=== PATIENT | female | born 1950 | race African-American/Black ===

== ENCOUNTER 2018-10-05 16:47 | Inpatient (IN) | payer MEDICARE, OTHER ==
[~2018-10-05] VITALS: Ht 165.1 cm; Wt 127.0 kg
[2018-10-05 16:59] VITALS: BP 149/76
--- NOTE | 2018-10-05 17:08 | PCM.EKG ---
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
--- NOTE | 2018-10-05 17:12 | NUR ---
ARRIVAL PT ARRIVED BY EMS WITH AMS. PT IS VERY LETHARGIC BUT DOES FOLLOW COMMANDS APPROPIATLY. LABS BEING DRAWN AT THIS TIME. VITAL SIGNS STABLE PT IS FEBRILE
[2018-10-05 17:18] LABS: BASOPHIL % 0.1 % (0.0-0.2); HEMOGLOBIN 12.7 g/dL (12.0-15.0); LYMPHOCYTES # 0.9 10^3/uL (1.0-4.8); LYMPHOCYTES % 10.8 % (24.0-44.0); MEAN CELL HGB 30.6 pg (26-34); MEAN CELL HGB CONCENTRATION 35.3 g/dL (33-37); MEAN CORP VOLUME 86.7 fL (78-100); MEAN PLATELET VOLUME 10.3 fL (7.8-11.0); MONOCYTES # 0.6 10^3/uL (0.3-0.8); MONOCYTES % 6.8 % (5.0-12.0); NEUTROPHIL # 6.8 10^3/uL (1.8-7.7); NEUTROPHILS % 82.2 % (41.0-85.0); RED CELL DISTRIBUTION WIDTH 12.5 % (11.5-14.5); WHITE BLOOD CELL 8.2 10^3/uL (4.5-11.0)
[2018-10-05 17:23] LABS: ABG PH 7.514 (7.350-7.450); BE(B) 0.3 mmol/L (-2.0-2.0); pO2 57.1 mmHg (75.0-100.0)
--- NOTE | 2018-10-05 17:25 | NUR ---
CT PATIENT OVER TO CT
[2018-10-05 17:34] LABS: STREP SCREEN POSITIVE (NEGATIVE)
--- NOTE | 2018-10-05 17:37 | NUR ---
LAB LAB IN ROOM FOR 2ND BLOOD CULTURE DRAW.
--- NOTE | 2018-10-05 17:42 | DIREP ---
PROCEDURE:CHEST 1 VIEW COMPARISON:None. INDICATIONS:COUGH FEVER FINDINGS: LUNGS/PLEURA:Shallow inspiratory effort. No infiltrates. VASCULATURE:Normal. Unremarkable pulmonary vasculature. CARDIAC:Heart size cannot be evaluated due to AP technique and shallow inspiration. MEDIASTINUM:Normal. No visible mass or adenopathy. BONES:Normal. No fracture or visible bony lesion. OTHER:Negative. CONCLUSION:Shallow inspiration. No infiltrates. Dictated by: Manpreet Canada M.D. on 10/05/2018 at 05:39 PM
--- NOTE | 2018-10-05 17:44 | DIREP ---
PROCEDURE:CT HEAD WITHOUT CONTRAST TECHNIQUE:Axial cuts were obtained through the head, without intravenous contrast material. The images were viewed at brain and bone settings. COMPARISON:None. INDICATIONS:AMS FINDINGS: VENTRICLES:Normal. CEREBRUM:Normal. CEREBELLUM:Normal. BRAINSTEM:Normal. SKULL:Normal. SINUSES:Mucoperiosteal thickening right ethmoid sinus. OTHER:Negative. CONCLUSION: 1. No intracranial abnormalities. 2. Right ethmoid sinusitis. Dictated by: Manpreet Canada M.D. on 10/05/2018 at 05:40 PM
[2018-10-05 17:45] LABS: ALANINE AMINOTRANSFERASE(ML) 40 U/L (12-78); ALKALINE PHOSPHATASE 88 U/L (50-136); ASPARTATE AMINO TRANSFERASE 43 U/L (0-35); CALCIUM 8.2 mg/dL (8.4-10.5); CARBON DIOXIDE 23.3 mmol/L (20.0-32); GLUCOSE 161 mg/dL (70-110)
[2018-10-05] MEDS ORDERED: ZOFRAN ONE (17:51)
--- NOTE | 2018-10-05 18:09 | ER.PDOC ---
General Chief Complaint: Altered Mental Status Stated Complaint: REQ Time seen by MD: 18:06 Source: patient Exam Limitations: no limitations History of Present Illness Initial Comments Fever, cough and runny nose for past few days. confused today. Timing/Duration: gradual Severity: moderate Associated Symptoms: fever/chills, runny nose, sore throat, cough Constitutional: see HPI EENTM: see HPI Respiratory: see HPI Cardiovascular: no symptoms reported Gastrointestinal: no symptoms reported All Other Systems: Reviewed and Negative Past Medical History Medical History: thyroid disease Physical Exam General Appearance: alert, no distress Nose: nose nml Throat: airway nml, pharyngeal erythema Neck: nml inspection, supple Respiratory: no resp.distress, breath sounds nml Abdomen: non-tender, no organomegaly CVS: reg rate & rhythm, heart sounds nml Skin: color nml, no rash, warm/dry Extremities: non-tender, nml ROM, no pedal edema NEURO/PSYCH: oriented x 3, CN's nml as tested, motor nml, sensation nml, mood/ affect nml, disoriented to time Results/Orders Results/Orders Laboratory Tests Test 10/05/18 17:11 10/05/18 17:12 10/05/18 18:30 White Blood Count 8.2 10^3/uL (4.5-11.0) Red Blood Count 4.15 10^6/uL (4.00-5.20) Hemoglobin 12.7 g/dL (12.0-15.0) Hematocrit 36.0 % (36.0-46.0) Mean Corpuscular Volume 86.7 fL (78-100) Mean Corpuscular Hemoglobin 30.6 pg (26-34) Mean Corpuscular Hemoglobin Concent 35.3 g/dL (33-37) Red Cell Distribution Width 12.5 % (11.5-14.5) Platelet Count 146 10^3/uL (150-400) Mean Platelet Volume 10.3 fL (7.8-11.0) Neutrophils (%) (Auto) 82.2 % (41.0-85.0) Lymphocytes (%) (Auto) 10.8 % (24.0-44.0) Monocytes (%) (Auto) 6.8 % (5.0-12.0) Neutrophils # (Auto) 6.8 10^3/uL (1.8-7.7) Lymphocytes # (Auto) 0.9 10^3/uL (1.0-4.8) Monocytes # (Auto) 0.6 10^3/uL (0.3-0.8) Absolute Immature Granulocyte (auto 0.01 10^3 u/L (0-2) Eosinophils % 0.0 % (0.0-5.0) Basophils % 0.1 % (0.0-0.2) Basophils # 0.0 10^3/uL (0.0-0.1) Eosinophil Count 0.0 10^3/uL (0.0-0.2) Prothrombin Time 12.3 SEC (9.8-11.9) Prothrombin Time INR (Non-Therap) 1.2 Activated Partial Thromboplast Time 33.9 SEC (24.67-30.72) Sodium Level 133 mmol/L (132-145) Potassium Level 3.0 mmol/L (3.6-5.2) Chloride Level 97.0 mmol/L (96-109) Carbon Dioxide Level 23.3 mmol/L (20.0-32) Anion Gap 15.7 Blood Urea Nitrogen 11 mg/dL (7-18) Creatinine 0.91 mg/dL (0.59-1.40) Estimated GFR () 74.8 (>/=60) BUN/Creatinine Ratio 12.0 Glucose Level 161 mg/dL (70-110) Calcium Level 8.2 mg/dL (8.4-10.5) Total Bilirubin 1.5 mg/dL (0.2-1.0) Aspartate Amino Transf (AST/SGOT) 43 U/L (0-35) Alanine Aminotransferase (ALT/SGPT) 40 U/L (12-78) Alkaline Phosphatase 88 U/L (50-136) Total Creatine Kinase 180 U/L (26-192) Troponin I < 0.02 ng/mL (0.00-0.05) Pro-B-Type Natriuretic Peptide 750 pg/mL (0-125) Total Protein 7.9 g/dL (6.4-8.2) Albumin 3.0 g/dL (3.4-5.0) Globulin 4.9 Percent Immature Gran (Cell Imm) 0.10 % (0.00-0.50) Influenza Type A Antigen NEGATIVE (NEG) Influenza B Immunofluorescence NEGATIVE (NEG) Group A Streptococcus Screen POSITIVE (NEGATIVE) Blood Gas Sample Site LEFT BRACHIAL ARTRY Blood Gas pH 7.514 (7.350-7.450) Blood Gas PCO2 28.0 mmHg (35.0-45.0) Blood Gas PO2 57.1 mmHg (75.0-100.0) Blood Gas HCO3 22.0 mmol/L (22.0-26.0) Blood Gas Base Excess 0.3 mmol/L (-2.0-2.0) [place] Test N/A Arterial Blood Oxygen Saturation 91.3 % (95-) Deoxyhemoglobin 8.4 % (0.2-0.6) Carboxyhemoglobin 2.5 % (0.5-1.5) Methemoglobin 0.6 % (0.2-0.6) Total Hemoglobin 13.7 % (13.5-17.5) Total Oxygen Concentration 17.0 % (13.5-17.5) Lactic Acid (Blood Gas) 1.5 MMOL/L (0.5-1.0) Blood Gas Temperature 37 Oxygen Delivery Method (LAB) RA FiO2 21 % (20-101) Bicarbonate 22.9 mmol/L (23-27) Urine Collection Type VOID Urine Color DARK YELLOW (YELLOW) Urine Appearance CLOUDY (CLEAR) Urine Bilirubin NEGATIVE MG/DL (NEGATIVE) Urine Ketones 5 mg/dL (NEGATIVE) Urine Specific [place] 1.020 (1.005-1.035) Urine pH 5 (5.0-6.0) Urine Protein 100 mg/dL (NEGATIVE) Urine Urobilinogen 8.0 (NEGATIVE) Urine Nitrate NEGATIVE (NEGATIVE) Urine Leukocyte Esterase 100/ul 1+ (NEGATIVE) Urine Blood 150 3+ (NEGATIVE) Urine RBC 2-5 RBC/HPF (NONE SEEN) Urine WBC 10-25 WBC/HPF (0-2) Urine Squamous Epithelial Cells MANY #/HPF (FEW) Urine Bacteria MODERATE (NONE SEEN) Urine Yeast RARE Urine Glucose NORMAL (NEGATIVE) Administered Medications Medications (Trade) Dose Ordered Sig/Lona Route PRN Reason Start Time Stop Time Status Last Admin Dose Admin Ketorolac Tromethamine (Toradol) 30 mg STAT STAT IV 10/05/18 18:18 10/05/18 18:19 DC 10/05/18 18:[address] head: No intracranial abnormalities. 2. Right ethmoid sinusitis. EKG/XRAY/CT/US XRAY: chest (Nothing acute) Departure Time of Disposition: 20:08 Disposition: 09 ADMITTED INPATIENT Impression: Primary Impression: Altered mental status Additional Impressions: UTI (urinary tract infection) Strep pharyngitis Sinusitis, acute Dehydration Condition: Stable Referrals: ROBERTO CARLOS SANTILLAN MD (PCP) PRIMARY CARE PROVIDER Comments Admitted to Dr. Rodriguez Duration or Time Spent with Pa: 60 mins Problem Qualifiers Primary Impression: Altered mental status Altered mental status type: unspecified Qualified Codes: R41.82 - Altered mental status, unspecified Additional Impressions: UTI (urinary tract infection) Urinary tract infection type: site unspecified Hematuria presence: with hematuria Qualified Codes: N39.0 - Urinary tract infection, site not specified ; R31.9 - Hematuria, unspecified Sinusitis, acute Sinusitis location: ethmoidal Recurrence: not specified as recurrent Qualified Codes: J01.20 - Acute ethmoidal sinusitis, unspecified LIT GARZA MD Oct 05, 2018 18:09
[2018-10-05] MEDS ORDERED: TORADOL ONE (18:17)
[2018-10-05] MEDS ORDERED: TORADOL IV STA (18:18)
--- NOTE | 2018-10-05 18:33 | NUR ---
UA PATIENT UP TO BATHROOM FOR UA.
[2018-10-05 18:36] VITALS: BP 124/62
[2018-10-05 19:12] LABS: APPEARANCE,URINE CLOUDY (CLEAR); BILIRUBIN,URINE NEGATIVE (NEGATIVE); UA COLOR DARK YELLOW (YELLOW)
[2018-10-05 19:13] LABS: YEAST,URINE RARE
[2018-10-05] MEDS ORDERED: HNS 1000ML/KCL 20MEQ 1,000 ML IV STA (19:35)
[2018-10-05] MEDS ORDERED: ROCEPHIN 1,000 MG in NS 100ML 100 ML IV STA (19:35)
[2018-10-05 19:37] VITALS: BP 122/62
[2018-10-05] MEDS ORDERED: NS 100ML 100 ML IV ONE (19:45)
[2018-10-05] MEDS ORDERED: ROCEPHIN ONE (19:46)
[2018-10-05] MEDS ORDERED: HNS 1000ML/KCL 20MEQ 1,000 ML ONE (19:46)
--- NOTE | 2018-10-05 20:00 | NUR ---
DR. DR. GARZA ON THE PHONE WITH DR. DIAZ
--- NOTE | 2018-10-05 20:13 | PRM.ACF1 ---
Date and Time Date and Time Time: 20:11 Admission Criteria Forms ACUTE LOSS OF CONSCIOUSNESS- ALOC Clinical Indications for Inpatient Care (Place 'X' for any and all applicable criteria): Ongoing inpatient care may be needed for ANY ONE of the following(1)(2)(3)(5)(6) : [ ]I. Suspected serious etiology (eg, medical disorder, SPINNING LATHE OPERATOR event) of mental status change [ ]II. Danger to self or others not manageable at lower level of care [ ]III. Grave disability (eg, inability to perform self care necessary at lower level of care) [ ]IV. Agitation or inappropriate behavior interfering with care for primary condition (eg, attempting to discontinue lines or drains prematurely, unable to cooperate with respiratory care) [ ]V. Delirium [A] [D][E] as described by ANY ONE of the following(26): [ ]a) Delirium due to alcohol or sedative [F] withdrawal [ ]b) Delirium of uncertain etiology that has not responded to appropriate empiric treatment [ ]c) Delirium that prevents performance of a life-sustaining function (eg, feeding or hydrating oneself) [ ]. General contraindications and/or Inappropriate clinical situations for Observational Care in patients with Acute Loss of Consciousness, when ANY ONE of the following is required: [ ]a) Prediction of prolongation of LOS based on ANY ONE of the following may be considered as a contraindication for observational care 2, 3, 4, 5, 6, 7, 8 , 9, 10, 11 [ x]i) Age > 65 yrs. [ ]ii) Patient arriving by ambulance [ ]iii) Patient with high acuity [ ]iv) Patient requiring vital sign monitoring [ ]v) Patient on IV medication [ ]b) Systolic blood pressures 180mmHg 3,12 [ ]c) Patient with altered mental status including delirium and other alteration of consciousness, (3) [ ]d) Patient whose discharge disposition will be to a assisted home or rehabilitation home should not be managed in Emergency Department Observation Unit. CMS rule requires 3 days hospital stay before such placement.3,13 [ ]e) Patient with failure to thrive due to broad array of etiologies 3,16,17 [ ]f) Inability to ambulate 3,14 Extended stay beyond goal length of stay for the primary condition may be needed until ALL of the following are present(3)(5): [ ]a) Underlying medical etiology of mental status change is absent, or has been established and adequately treated [ ]b) Danger to self or others is absent or manageable at lower level of care. [ ]c) Behavior crisis management, including physical or chemical restraints, is not required or available at lower level of car [ ]d) Substance or alcohol withdrawal is absent or manageable at lower level of care. [ ]e) Behavioral symptoms (eg, agitation, somnolence, inappropriate behavior) are absent, or are manageable at lower level of care. The original [facility] [employer] content created by [facility] [employer] has been revised. The portions of the content which have been revised are identified through the use of italic text or in bold, and [employer] has neither reviewed nor approved the modified material. All other unmodified content is copyright [facility] [employer]. Please see references footnoted in the original [facility] [employer] edition 2016 LIT GARZA MD Oct 05, 2018 20:13
[2018-10-05 20:36] VITALS: BP 144/78
--- NOTE | 2018-10-05 21:19 | NUR ---
REPORT CALLED REPORT TO LIDA ESCOBEDO CHARGE NURSE.
--- NOTE | 2018-10-05 21:22 | NUR ---
FAMILY CALLED AND NOTIFIED PATIENTS DAUGHTER THAT SHE WAS GOING TO BE ADMITTED FOR OBSERVATION TO RM 328.
[2018-10-05] MEDS ORDERED: LEVO150T6 PO (21:25)
[2018-10-05] MEDS: D5W-1/2 NS/KCL 20MEQ 1,000 ML IV SCH (23:00)
[2018-10-06 01:30] VITALS: BP 136/83
[2018-10-06] MEDS: TYLENOL PO PRN ×2 (01:57→20:33)
--- NOTE | 2018-10-06 02:30 | NUR ---
WAS UNABLE TO FINISH ADMISSION PACKET ON PT. PT IS UNABLE TO ANSWER QUESTIONS DUE TO HER AMS. ONLY ABLE TO SAY [facility] WHEN ASKED ABOUT PHARMACY. HAVE TRIED SEVERAL TIMES DURING THIS SHIFT. PT'S DAUGHTER WAS IN ER WITH HER BUT LEFT BEFORE PT CAME UP TO THE FLOOR. UNABLE TO GET [facility] OF HER EARLIER. TRIED TO PULL UP PASSED DATA BUT WAS UNABLE TO RECALL ANY. WILL TRY DAUGHTER AGAIN IN AM BEFORE SHIFT CHANGE TO SEE IF SHE CAN PROVIDE.
[2018-10-06 05:12] LABS: BASOPHIL % 0.1 % (0.0-0.2); EOSINOPHIL % 0.3 % (0.0-5.0); HEMOGLOBIN 12.7 g/dL (12.0-15.0); LYMPHOCYTES # 0.4 10^3/uL (1.0-4.8); MEAN CELL HGB 30.2 pg (26-34); MEAN CELL HGB CONCENTRATION 35.2 g/dL (33-37); MEAN CORP VOLUME 85.7 fL (78-100); MEAN PLATELET VOLUME 10.3 fL (7.8-11.0); MONOCYTES # 0.6 10^3/uL (0.3-0.8); MONOCYTES % 6.3 % (5.0-12.0); NEUTROPHIL # 7.8 10^3/uL (1.8-7.7); RED CELL DISTRIBUTION WIDTH 12.6 % (11.5-14.5); WHITE BLOOD CELL 8.8 10^3/uL (4.5-11.0)
[2018-10-06 05:55] LABS: BAND NEUTROPHILS 9 % (2-6); LYMPHOCYTE 6 % (25-36); MONOCYTE 4 % (3-9); SEGMENTED NEUTROPHILS 81 % (31-76)
[2018-10-06 05:56] LABS: CALCIUM 8.1 mg/dL (8.4-10.5); CARBON DIOXIDE 22.6 mmol/L (20.0-32)
[2018-10-06 07:39] VITALS: BP 118/51
[2018-10-06] MEDS ORDERED: ROCEPHIN 1,000 MG in NS 100ML 100 ML IV SCH (08:00)
--- NOTE | 2018-10-06 08:00 | NUR ---
NOTIFIED DR DIAZ THAT PT REFUSING TO WEAR SCDS
[2018-10-06] MEDS: D5W-1/2 NS/KCL 20MEQ 1,000 ML IV SCH (08:06)
[2018-10-06] MEDS ORDERED: PROTONIX PO SCH (09:00)
--- NOTE | 2018-10-06 09:39 | NUR ---
TEA COLORED URINE OBSERVED IN F/C. NOTIFIED DR DIAZ. NEW ORDERS RECEIVED TO OBTAIN A CK
[2018-10-06] MEDS ORDERED: ATIVAN ONE ×2 (09:59→12:19)
[2018-10-06] MEDS ORDERED: ZITHROMAX 500 MG in NS 250ML 250 ML IV SCH (10:00)
[2018-10-06] MEDS ORDERED: ATIVAN IV ONE (10:30)
--- NOTE | 2018-10-06 10:30 | NUR ---
NEW ORDERS RECEIVED FOR A LUMBAR PUNCTURE FOR SUSPECTING MENINGITIS. PT PLACED ON PROPER PRECAUTIONS. NOTIFIED ANESTHESIA. AWAITING CONSENT TO BE SIGNED BY DAUGHTER
[2018-10-06] MEDS: ROCEPHIN 2,000 MG in NS 100ML 100 ML IV SCH (11:22)
[2018-10-06] MEDS ORDERED: PROTONIX IV IV ONE (12:07)
[2018-10-06] MEDS: PROTONIX IV IV SCH (12:28)
[2018-10-06] MEDS: TORADOL IV PRN (12:28)
[2018-10-06] MEDS: ZITHROMAX 500 MG in NS 250ML 250 ML IV SCH (12:30)
--- NOTE | 2018-10-06 12:59 | NUR ---
DISCHARGE PLAN CM AT BEDSIDE TO VISIT WITH PATIENT REGARDING DISCHARGE PLAN AND NEEDS. PATIENT IS UNABLE TO ANSWER ANY QUESTIONS D/T AMS. CM VISITED WITH DAUGHTER ON THE PHONE AND DAUGHTER STATES THAT HER MOTHER IS VERY INDEPENDENT OF ADLS. SHE IS AND LIVES AT HOME WITH SEVERAL OF HER ADULT CHILDREN. SHE DOES NOT HAVE ANY DME IN PLACE OR HOME HEALTH. HER DAUGHTER VERBALLY REFUSED ANY ADDITIONAL RESOURCES OFFERED BY CM. GOAL IS FOR PATIENT TO D/C HOME WITH SUPPORT OF CHILDREN ON DISCHARGE.
--- NOTE | 2018-10-06 13:00 | NUR ---
NEW ORDERS RECEIVED FOR A LUMBAR PUNCTURE. NOTIFIED ANESTHESIA. SUSPECTING MENINGITIS. PT PLACED ON PROPER PRECAUTIONS UNTIL LAB RESULTS ARE OBTAINED Addendum: 10/06/18 at 2010 by Mike Dillon LVN-Med Surg CARE DIRECTOR RN WRONG TIME
[2018-10-06 13:14] VITALS: BP 139/75
--- NOTE | 2018-10-06 13:30 | NUR ---
ANESTHESIA AT BEDSIDE FOR LUMBAR PUNCTURE
[2018-10-06] MEDS ORDERED: VERSED ONE (13:33)
[2018-10-06] MEDS ORDERED: LIDOCAINE 1% VIAL ONE (13:35)
--- NOTE | 2018-10-06 13:40 | NUR ---
PT UNABLE TO REMAIN CALM DURING PROCEDURE. VERSED GIVEN AT THIS TIME BY Dalton BAINS RN. PT PLACED ON VITAL SIGN MACHINE TO MONITOR O2SAT AND HR.
[2018-10-06 14:05] VITALS: BP 111/68
--- NOTE | 2018-10-06 15:59 | NUR ---
LAB REPORTED WBC IN CSF OF 324. STATED THAT IT MIGHT BE A FALSE READING SINCE CSF WAS BLOOD TINGED
--- NOTE | 2018-10-06 16:00 | NUR ---
NOTIFIED DR DIAZ OF WBC IN CSF OF 324. NO NEW ORDERS RECEIVED
--- NOTE | 2018-10-06 16:10 | PCM.HP ---
HISTORY & PHYSICAL HISTORY & PHYSICAL DATE OF ADMISSION: CHIEF COMPLAINT: 67 y.o. female comes in with 3 to 5 days of confusion, fever , cough, myalgias. Meets criteria for SIRS and UTI makes it Sepsis. Confusion likely secondary to infectious encephalopathy. Admit for IV fluids and abx. May need LP and possible MRI. Repeat CXR once hydrated. H&P # [id number] HISTORY OF PRESENT ILLNESS: ALLERGIES: CURRENT MEDICATIONS: PAST MEDICAL HISTORY: SOCIAL HISTORY: FAMILY HISTORY: REVIEW OF SYSTEMS: PHYSICAL EXAMINATION: GENERAL: VITAL SIGNS: HEENT: NECK: LUNGS: HEART: ABDOMEN: EXTREMITIES: NEUROLOGIC: LABORATORY DATA: IMPRESSION: CARE PLAN: MIHIR DIAZ MD Oct 06, 2018 16:10
[2018-10-06 16:52] LABS: HEMOGLOBIN 11.6 g/dL (12.0-15.0); MEAN CELL HGB 30.4 pg (26-34); MEAN CORP VOLUME 86.6 fL (78-100); MEAN PLATELET VOLUME 10.4 fL (7.8-11.0); RED CELL DISTRIBUTION WIDTH 12.8 % (11.5-14.5); WHITE BLOOD CELL 9.2 10^3/uL (4.5-11.0)
[2018-10-06] MEDS: LOVENOX SQ SCH (17:32)
--- NOTE | 2018-10-06 19:12 | HPH ---
ADMIT DATE: 10/05/2018 CHIEF COMPLAINT: Altered mental status, fever and cough. HISTORY OF PRESENT ILLNESS: This is a 67-year-old female with multiple medical problems who comes to the Emergency Department complaining of generalized weakness, confusion, cough and shortness of breath for the last several days. The patient's confusion rapidly progressed in the Emergency Department, but the story from Dr. Freeman is that the patient was brought in after having cold and flu-like symptoms for several days, the worst of which being cough and shortness of breath. She reportedly tested positive for strep throat in the Emergency Department. When I interviewed and examined the patient, she was very confused and would only say a few words and was completely unable to give any history. I then called her daughter who gave me the rest of the history. She states for the last 5 days, the patient has complained of sore throat, cough, congestion, and generalized achiness. Then, apparently 24 hours ago, she started developing a low-grade fever, which progressed throughout the day and that is when they decided to bring the patient into the hospital. The daughter states the patient started becoming confused the day before she came to the hospital, but it was mild. The day she was brought into the Emergency Department, the confusion apparently worsened and the patient started saying words that did not make sense as well as sentences that did not make sense and her daughter was concerned about a possible stroke. The patient has also been noticed to be very weak and wobbly with a very unsteady gait over the last several days. They have not checked her fever at home, but they state that she has been cold and shivering and then would become hot and sweaty. She has not been on any antibiotics. There are no known sick contacts. PAST MEDICAL HISTORY: 1. Hypothyroidism. 2. Hypertension. 3. Osteoarthritis. 4. Generalized anxiety. 5. GERD. MEDICATIONS: See admit medication reconciliation form. ALLERGIES: No known drug allergies. PAST SURGICAL HISTORY: Unknown. SOCIAL HISTORY: Alcohol, tobacco -- none. The patient lives with her daughter. They live in [place]. FAMILY HISTORY: Noncontributory. REVIEW OF SYSTEMS: GENERAL: Positive for recent weakness, fatigue, malaise, and fever over the last several days. CARDIAC: Denies chest pain, orthopnea, PND or palpitations. RESPIRATORY: Positive for shortness of breath and cough. No hemoptysis. No history of tuberculosis. GASTROINTESTINAL: No nausea, vomiting, diarrhea or constipation, according to the family. GENITOURINARY: Denies dysuria, frequency, hematuria or nocturia. HEMATOLOGIC: No easy bleeding or bruising. ENDOCRINE: No recent weight loss or weight gain. No temperature intolerance. NEUROLOGIC: Denies headache. She has been dizzy over the last several days. OBJECTIVE: VITAL SIGNS: Temperature 101.5, pulse 102, respirations 17, pulse ox 93%, blood pressure 149/76. GENERAL: This is a very confused female in no acute distress. She is trying to walk to the restroom, but is falling to the left and almost fell prior to me catching her. She is in no acute distress. HEENT: Atraumatic, normocephalic. Sclerae are clear and anicteric. Oral mucosa is moist. NECK: Soft, supple. Normal range of motion. No bruits, goiter, mass or adenopathy. There is no JVD. LUNGS: Clear to auscultation bilaterally. HEART: Regular rate and rhythm without murmurs, S3 or S4. ABDOMEN: Soft, nontender, nondistended. Positive bowel sounds. No masses felt. EXTREMITIES: Warm and well perfused without evidence of edema, cyanosis or clubbing. NEUROLOGIC: Cranial nerves 2-12 are grossly intact and symmetric. SKIN: Intact. LABORATORY DATA: WBC 8.2, hemoglobin 12.7, hematocrit 36, platelets 146. A pH 7.5, pCO2 of 28, pO2 of 57. Sodium 133, potassium 3.0, chloride 97, CO2 of 23.3, glucose 161. Calcium 8.2, total bilirubin 1.5, AST 43, ALT 40, total CK 180-297. ProBNP is 750. Albumin 3.0 Urine -- moderate bacteria, rare yeast, 10-25 wbc's, ____ leukocyte esterase. Chest x-ray -- "shallow inspirations. No infiltrates." Head CT -- "no intracranial abnormalities, right ethmoid sinusitis." ASSESSMENT: 1. Acute altered level of consciousness/encephalopathy -- likely infectious. 2. Severe sepsis. 3. Urinary tract infection. 4. Streptococcal pharyngitis. 5. Hypokalemia. 6. Hypoxemia. 7. Rhabdomyolysis. PLAN: 1. This patient is admitted to the med/surg floor at [facility] where she will be treated for infectious encephalopathy as well as sepsis. 2. We will start IV ceftriaxone as well as IV azithromycin for possible atypical pneumonia. 3. She will get 3 liters of normal saline at 30 mL/kg per hour before placed on maintenance fluids. 4. Blood cultures, urine cultures are pending. 5. She will need Lovenox for DVT prophylaxis and omeprazole for stress ulcer prophylaxis. 6. Replace potassium. 7. Consider adding vancomycin if no clinical response or if cultures become more consistent with Staphylococcus. 8. We will try to obtain lumbar puncture to evaluate for the possibility of bacterial or viral meningitis. 9. We will need physical therapy consultation and possibly consultation for care home. Follow CK level to assure it is reducing. Thank you very much. Edward Rodriguez MD DR: DOT/anuradha JOB# [id number]
[2018-10-06 20:10] VITALS: BP 116/50
[2018-10-06 23:58] VITALS: BP 116/67
[2018-10-07] MEDS: TYLENOL PO PRN ×3 (03:23→16:52)
[2018-10-07] MEDS: D5W-1/2 NS/KCL 20MEQ 1,000 ML IV SCH ×2 (03:27→20:46)
[2018-10-07 03:59] VITALS: BP 109/62
[2018-10-07 06:04] LABS: CARBON DIOXIDE 24.8 mmol/L (20.0-32)
--- NOTE | 2018-10-07 06:25 | NUR ---
BEDSIDE REPORT RECEIVED FROM NIGHT NURSE DENILSON HILTON.
--- NOTE | 2018-10-07 06:33 | NUR ---
STATUS POTASSIUM 3.1 , NOTIFIED DR DIAZ VIA TELEPHONE.
[2018-10-07] MEDS ORDERED: SYNTHROID PO STA ×3 (07:27→07:37)
[2018-10-07 07:28] LABS: THYROXINE (T4) TOTAL(REF) 5.7 ug/dL (4.5-12.0)
[2018-10-07] MEDS ORDERED: SYNTHROID ONE (07:29)
[2018-10-07] MEDS ORDERED: KLOR-CON 10 PO SCH ×2 (07:30→09:00)
--- NOTE | 2018-10-07 07:40 | NUR ---
Pt STATES THAT SHE TAKES 150 MCG LEVOTHYROXINE SODIUM DAILY AT HOME,NOTIFIED DR. DIAZ RECEIVED AN ORDER TO CONTINUE HER HOME MEDICINE LEVOTHYROXINE, STAT 40 MG POTASSIUM.
[2018-10-07 08:13] VITALS: BP 148/88
[2018-10-07] MEDS: ROCEPHIN 2,000 MG in NS 100ML 100 ML IV SCH (09:04)
--- NOTE | 2018-10-07 09:04 | DIREP ---
PROCEDURE:CHEST 1 VIEW COMPARISON:[facility], CR, XRAY CHEST SINGLE VW, 10/05/2018, 04:28 PM. INDICATIONS:Possible pneumonia. FINDINGS: LUNGS/PLEURA:Shallow inspiratory effort, slightly improved. No infiltrates. VASCULATURE:Normal. Unremarkable pulmonary vasculature. CARDIAC:Borderline cardiomegaly MEDIASTINUM:Normal. No visible mass or adenopathy. BONES:Normal. No fracture or visible bony lesion. OTHER:Surgical clips in the region of the stomach CONCLUSION:Improved inspiratory excursion. No new infiltrates Dictated by: Nathanael Mclean M.D. on 10/07/2018 at 09:01 AM
[2018-10-07 12:26] VITALS: BP 138/85
[2018-10-07] MEDS: TORADOL IV PRN ×2 (12:33→22:19)
[2018-10-07] MEDS: ZITHROMAX 500 MG in NS 250ML 250 ML IV SCH (12:33)
--- NOTE | 2018-10-07 12:48 | NUR ---
c/o of pain Pt C/O OF HEADACHE "ACHING AT 8/10 IN RATING SCALE " ADMINISTERED TORADOL 30 MG IV PRN WILL REASSESS THE PAIN AGAIN.
[2018-10-07] MEDS: LOVENOX SQ SCH (16:19)
[2018-10-07 16:46] VITALS: BP 144/83
[2018-10-07] MEDS ORDERED: CIPRO 200 ML IV SCH (17:30)
[2018-10-07] MEDS ORDERED: NS IV SCH (17:30)
[2018-10-07] MEDS ORDERED: VANCOMYCIN IV SCH (17:30)
--- NOTE | 2018-10-07 17:45 | PRM.PN ---
Subjective Subjective Date: Oct 07, 2018 Time: 17:33 Subjective Much more awake today. Still some confusion and difficulty with word finding but overall significantly improved. She is able to communicate with me today as well as communicate with family. Family and nursing staff states she is much better also. She does complain of a headache that is in the front part of her head above her left eye and states that she has mild neck stiffness. Some difficulty with moving her head but she states she always has a stiff neck. VTE VTE Risk Total Score: 5 VTE Risk Score VTE Risk: Score 0-1 = Low Risk (Aggressive mobilization; early ambulation; no VTE prophylaxis required) Score 2: Moderate Risk (Intermittent/Pneumatic Compression Device OR Lovenox/Heparin/Coumadin) Score 3-4: High Risk (Intermittent/Pneumatic Compression Device AND Lovenox/Heparin/Coumadin) Score > or =5: Highest Risk (Intermittent/Pneumatic Compression Device AND Lovenox/Heparin/Coumadin) Review of Systems Constitutional: Weakness; No: Fever Respiratory: No: Cough, Dry, Shortness of breath, SOB with excertion, Wheezing , Hemoptysis, Pleuritic Pain, Sputum, Wheezing, Other Cardiovascular: No: Chest Pain, Palpitations, Orthopnea, Paroxysmal Noc. Dyspnea, Edema, Lt Headedness, Other Gastrointestinal: No: Nausea, Vomiting, Abdominal Pain, Diarrhea, Constipation , Melena, Hematochezia, Other Musculoskeletal: neck pain Neurological: Change in speech, Confusion, Other ( headache) Allergies: Coded Allergies: No Known Allergies (Unverified , 10/05/18) Scheduled Levothyroxine Sodium (Levothyroxine Sodium), 1 TAB PO DAILY, (Reported) Objective Vitals and I/O Vital Sign - Last 24 Hours 10/06/18 10/06/18 10/06/18 10/07/18 20:10 20:13 23:58 03:59 Temp 99.1 97.8 97.9 99.1 97.8 97.9 Pulse 88 69 74 Resp 20 18 18 B/P (MAP) 116/50 (72) 116/67 (83) 109/62 (78) Pulse Ox 100 100 100 O2 Delivery Room Air Room Air Room Air Room Air 10/07/18 10/07/18 10/07/18 10/07/18 06:30 08:13 12:26 16:46 Temp 98.4 97.4 97.9 98.4 97.4 97.9 Pulse 88 70 80 Resp 18 18 18 B/P (MAP) 148/88 (108) 138/85 (102) 144/83 (103) Pulse Ox 98 98 98 O2 Delivery Room Air Room Air Room Air Room Air Intake and Output 10/06/18 10/06/18 10/07/18 15:01 23:01 07:01 Intake Total 2328 ml Output Total 400 ml 1100 ml Balance -400 ml 1228 ml General: Alert, Oriented X3, Cooperative, No acute distress Neck: No JVD, No thyromegaly, +2 carotid pulse wo bruit, Other ( very mild tenderness on the trapezius posterior neck) Lungs: Clear to auscultation Heart: Regular rate, Normal S1, Normal S2, No murmurs Abdomen: Normal bowel sounds, Soft, No tenderness, No masses Psych/Mental Status: Other ( still some very mild confusion and difficulty finding words.) Course Sepsis Screening Results: Posi: NEGATIVE Sepsis Qualifier/Stage: NO DEFINITE RISK Duration or Total Time Spent w: 60 mins Vitals & review Data Vital Sign - Last 24 Hours 10/06/18 10/06/18 10/06/18 10/07/18 20:10 20:13 23:58 03:59 Temp 99.1 97.8 97.9 99.1 97.8 97.9 Pulse 88 69 74 Resp 20 18 18 B/P (MAP) 116/50 (72) 116/67 (83) 109/62 (78) Pulse Ox 100 100 100 O2 Delivery Room Air Room Air Room Air Room Air 10/07/18 10/07/18 10/07/18 10/07/18 06:30 08:13 12:26 16:46 Temp 98.4 97.4 97.9 98.4 97.4 97.9 Pulse 88 70 80 Resp 18 18 18 B/P (MAP) 148/88 (108) 138/85 (102) 144/83 (103) Pulse Ox 98 98 98 O2 Delivery Room Air Room Air Room Air Room Air Intake and Output 10/06/18 10/06/18 10/07/18 15:01 23:01 07:01 Intake Total 2328 ml Output Total 400 ml 1100 ml Balance -400 ml 1228 ml Laboratory Tests Test 10/05/18 18:30 10/06/18 04:55 10/06/18 05:14 10/06/18 11:10 Urine Collection Type VOID Urine Color DARK YELLOW Urine Appearance CLOUDY Urine Bilirubin NEGATIVE MG/DL Urine Ketones 5 mg/dL Urine Specific [place] 1.020 Urine pH 5 Urine Protein 100 mg/dL Urine Urobilinogen 8.0 Urine Nitrate NEGATIVE Urine Leukocyte Esterase 100/ul 1+ Urine Blood 150 3+ Urine RBC 2-5 RBC/HPF Urine WBC 10-25 WBC/HPF Urine Squamous Epithelial Cells MANY #/HPF Urine Bacteria MODERATE Urine Yeast RARE Urine Glucose NORMAL White Blood Count 8.8 10^3/uL Red Blood Count 4.21 10^6/uL Hemoglobin 12.7 g/dL Hematocrit 36.1 % Mean Corpuscular Volume 85.7 fL Mean Corpuscular Hemoglobin 30.2 pg Mean Corpuscular Hemoglobin Concent 35.2 g/dL Red Cell Distribution Width 12.6 % Platelet Count 108 10^3/uL Mean Platelet Volume 10.3 fL Neutrophils (%) (Auto) 88.0 % Lymphocytes (%) (Auto) 5.0 % Monocytes (%) (Auto) 6.3 % Neutrophils # (Auto) 7.8 10^3/uL Lymphocytes # (Auto) 0.4 10^3/uL Monocytes # (Auto) 0.6 10^3/uL Absolute Immature Granulocyte (auto 0.03 10^3 u/L Eosinophils % 0.3 % Basophils % 0.1 % Basophils # 0.0 10^3/uL Eosinophil Count 0.0 10^3/uL Sodium Level 135 mmol/L Potassium Level 3.0 mmol/L Chloride Level 99.0 mmol/L Carbon Dioxide Level 22.6 mmol/L Anion Gap 16.4 Blood Urea Nitrogen 10 mg/dL Creatinine 0.82 mg/dL Estimated GFR () 84.4 BUN/Creatinine Ratio 12.0 Glucose Level 115 mg/dL Hemoglobin A1c 5.1 % Calcium Level 8.1 mg/dL Total Bilirubin 2.3 mg/dL Aspartate Amino Transf (AST/SGOT) 38 U/L Alanine Aminotransferase (ALT/SGPT) 35 U/L Alkaline Phosphatase 84 U/L Total Creatine Kinase 297 U/L 312 U/L Total Protein 7.3 g/dL Albumin 2.7 g/dL Globulin 4.6 Vitamin B12 Level 372 pg/mL Thyroid Stimulating Hormone (TSH) 0.994 mIU/mL Free Thyroxine 1.13 ng/dL Thyroxine (T4) 5.7 ug/dL Free Triiodothyronine (T3) Index 1.10 Percent Immature Gran (Cell Imm) 0.30 % Differential Total Cells Counted 100 #CELLS Segmented Neutrophils 81 % Band Neutrophils 9 % Lymphocytes 6 % Monocytes 4 % Platelet Estimate ADEQUATE Platelet Morphology NORMAL Blood Morphology Comment NORMAL MORPHOLOGY Test 10/06/18 13:50 10/06/18 16:29 10/07/18 04:53 CSF Volume 7.0 ML CSF Appearance TURBID CSF Color BLOODY CSF WBC 324 /mm3 CSF RBC 74806 /mm3 CSF Neutrophils 73 % CSF Lymphocytes 20 % CSF Other Cells CSF Comment CSF Glucose 3 mg/dL CSF Total Protein 570 mg/dL White Blood Count 9.2 10^3/uL Red Blood Count 3.82 10^6/uL Hemoglobin 11.6 g/dL Hematocrit 33.1 % Mean Corpuscular Volume 86.6 fL Mean Corpuscular Hemoglobin 30.4 pg Mean Corpuscular Hemoglobin Concent 35.0 g/dL Red Cell Distribution Width 12.8 % Platelet Count 112 10^3/uL Mean Platelet Volume 10.4 fL Sodium Level 136 mmol/L Potassium Level 3.1 mmol/L Chloride Level 102.0 mmol/L Carbon Dioxide Level 24.8 mmol/L Anion Gap 12.3 Blood Urea Nitrogen 13 mg/dL Creatinine 0.77 mg/dL Estimated GFR () 90.5 BUN/Creatinine Ratio 16.0 Glucose Level 122 mg/dL Calcium Level 8.0 mg/dL Magnesium Level 2.1 mg/dL Total Bilirubin 1.4 mg/dL Aspartate Amino Transf (AST/SGOT) 34 U/L Alanine Aminotransferase (ALT/SGPT) 32 U/L Alkaline Phosphatase 73 U/L Total Protein 6.7 g/dL Albumin 2.3 g/dL Globulin 4.4 Current Medications Medications (Trade) Dose Ordered Sig/Lona PRN Reason Start Time Stop Time Status Last Admin Acetaminophen (Tylenol) 1,000 mg Q6HR PRN PAIN or Fever 10/05/18 23:00 11/04/18 22:59 10/07/18 16:52 Azithromycin 500 mg/Sodium Chloride 250 ml @ 175 mls/hr Q24HRS 10/06/18 12:30 11/05/18 12:29 10/07/18 12:33 Enoxaparin Sodium (Lovenox) 40 mg Q24HRS 10/06/18 16:00 11/05/18 15:59 10/07/18 16:19 Ketorolac Tromethamine (Toradol) 30 mg Q6HR PRN PAIN or Fever 10/05/18 23:00 10/10/18 22:59 10/07/18 12:33 Levothyroxine Sodium (Synthroid) 150 mcg ACB 10/08/18 06:30 11/07/18 06:29 Pantoprazole Sodium (Protonix Iv) 40 mg DAILY 10/07/18 09:00 11/06/18 08:59 10/06/18 12:28 Potassium Chloride/Dextrose/ Sod Cl 1,000 ml @ 75 mls/hr [id number] 10/05/18 23:00 11/04/18 22:59 10/07/18 03:27 Potassium Chloride (Klor-Con 10) 40 meq STAT 10/07/18 07:30 11/06/18 07:29 10/07/18 07:34 Sepsis Infection Criteria Pres: Documented Infection LEVEL 1 SEPSIS INFECTION CRITE: ABX Therapy, Urinary Tract Infection LEVEL 2-SIRS (LIST ALL THAT AP: [id number] Cardiovascular Evidence: Not Assessed or None Hematologic Evidence: None/Not assessed Hepatic Evidence: None/Not assessed Metabolic Evidence: None/Not assessed Neurological Evidence: Altered Mental Status Respiratory Evidence: None/Not assessed Renal Evidence: None/Not assessed O2 Sat by Pulse Oximetry: 98 Assessment/Plan Assessment/Plan Problems: (1) Infectious encephalopathy Assessment & Plan: Unclear etiology of main encephalopathy although definitely infectious. Probably multi-faceted cause. Her symptoms and signs of encephalopathy from encephalitis are classic however she is statistically more likely to have bacteremia and sepsis from her urinary infection. However, her bacteremia is not consistent with the Escherichia coli growing in her urine. We are still waiting on the final culture and sensitivity of the cerebrospinal fluid but for now, she potentially could be encephalopathic from meningitis, bacteremia from all causes, or urosepsis. Pneumonia has even not been fully ruled out. Nonetheless, encephalopathy and mental status symptoms are greatly improved. Continue current plan for now. Approximately 80 minutes were spent in the care and treatment of this patient today. This includes time with the patient and family discussing my findings and my plan of care as well as documentation. Greater than 50% of this visit was spent in counseling and coordination of care. ICD Code: G93.49 - Other encephalopathy; B99.9 - Unspecified infectious disease SNOMED: 08590807, 29668336 (2) Gram-positive cocci bacteremia Assessment & Plan: Unclear etiology. Does not fit the pattern for being related to her urinary tract infection. Continue vancomycin for now. ICD Code: R78.81 - Bacteremia SNOMED: 141485226, 463024253378 (3) Meningitis, bacterial Assessment & Plan: This is a very complicated picture. She has multiple symptoms and signs of classic bacterial meningitis. At this time, her CSF culture is showing gram-positive cocci. However, the tap was traumatic and it could be picking up bacteria from the blood. I think it's prudent however, to treat her at this time for bacterial meningitis secondary to the consequences of not doing so. For now, will continue vancomycin and high-dose ceftriaxone as the patient is clinically improving. Will await further culture and sensitivity of see SF. Will order MRI for the morning. ICD Code: G00.9 - Bacterial meningitis, unspecified SNOMED: 57577657 (4) Strep pharyngitis Status: Acute Assessment & Plan: It's possible the bacteremia is from stress, but I don't think she would get the severity of mental status changes if this was the sole etiology of her infection. Nonetheless, antibiotic usage is tailored toward treating this as well. ICD Code: J02.0 - Streptococcal pharyngitis SNOMED: 90520465 (5) UTI (urinary tract infection) Status: Acute Assessment & Plan: Positive for very sensitive E coli. Ciprofloxacin likely best in this case. We will start this afternoon. ICD Code: N39.0 - Urinary tract infection, site not specified SNOMED: 55231848 (6) Altered mental status Status: Acute Assessment & Plan: much improved. Continue plan as mentioned above. ICD Code: R41.82 - Altered mental status, unspecified SNOMED: 427127466 (7) Dehydration Status: Acute Assessment & Plan: Much improved with aggressive IV fluid resuscitation. Continue same for now. ICD Code: E86.0 - Dehydration SNOMED: 76019642 (8) Hypomagnesemia Assessment & Plan: Replace. ICD Code: E83.42 - Hypomagnesemia SNOMED: 103024873 (9) Hypokalemia Assessment & Plan: likely secondary to dehydration and other electrolyte dyscrasias. Replace as needed. ICD Code: E87.6 - Hypokalemia SNOMED: 97895315 Problem Qualifiers (1) UTI (urinary tract infection): Urinary tract infection type: site unspecified Hematuria presence: with hematuria Qualified Codes: N39.0 - Urinary tract infection, site not specified ; R31.9 - Hematuria, unspecified (2) Altered mental status: Altered mental status type: unspecified Qualified Codes: R41.82 - Altered mental status, unspecified MIHIR DIAZ MD Oct 07, 2018 17:45
--- NOTE | 2018-10-07 18:13 | DIREP ---
PROCEDURE:CHEST 1 VIEW COMPARISON:[facility], CR, XRAY CHEST SINGLE VW, 10/07/2018, 07:08 AM. INDICATIONS:Possible pneumonia FINDINGS: LUNGS/PLEURA:No significant pulmonary parenchymal abnormalities. No effusions. VASCULATURE:Normal. Unremarkable pulmonary vasculature. CARDIAC:Normal. No cardiac silhouette abnormality or cardiomegaly. MEDIASTINUM:Normal. No visible mass or adenopathy. BONES:Normal. No fracture or visible bony lesion. OTHER:Negative. CONCLUSION:No acute cardiopulmonary disease is seen. Dictated by: Doug Burroughs M.D. on 10/07/2018 at 06:10 PM
--- NOTE | 2018-10-07 18:43 | NUR ---
valerio order clarified with dr Rodriguez, 1 gm in 250 ml NS bag.
--- NOTE | 2018-10-07 19:05 | NUR ---
SHIFT CHANGE REPORT GIVEN TO NIGHT NURSE CHRIS MONTEIRO.
[2018-10-07 20:00] VITALS: BP 121/78
[2018-10-07] MEDS ORDERED: NS 250ML 250 ML IV ONE (20:44)
[2018-10-07] MEDS ORDERED: VANCOMYCIN HCL 1 GM ONE (20:44)
[2018-10-07] MEDS: CIPRO 200 ML IV SCH (20:44)
[2018-10-07] MEDS: VANCOMYCIN HCL 1 GM in NS 250ML 250 ML IV SCH (22:00)
[2018-10-08 00:20] VITALS: BP 135/70
[2018-10-08] MEDS: D5W-1/2 NS/KCL 20MEQ 1,000 ML IV SCH ×2 (04:20→16:31)
[2018-10-08 04:30] VITALS: BP 143/68
[2018-10-08 05:17] LABS: BASOPHIL % 0.4 % (0.0-0.2); EOSINOPHIL # 0.1 10^3/uL (0.0-0.2); EOSINOPHIL % 0.5 % (0.0-5.0); HEMOGLOBIN 11.1 g/dL (12.0-15.0); LYMPHOCYTES # 1.4 10^3/uL (1.0-4.8); LYMPHOCYTES % 14.5 % (24.0-44.0); MEAN CELL HGB 30.2 pg (26-34); MEAN CELL HGB CONCENTRATION 34.9 g/dL (33-37); MEAN CORP VOLUME 86.4 fL (78-100); MEAN PLATELET VOLUME 11.3 fL (7.8-11.0); MONOCYTES # 0.9 10^3/uL (0.3-0.8); MONOCYTES % 9.1 % (5.0-12.0); NEUTROPHIL # 7.2 10^3/uL (1.8-7.7); NEUTROPHILS % 74.4 % (41.0-85.0); RED CELL DISTRIBUTION WIDTH 12.8 % (11.5-14.5); WHITE BLOOD CELL 9.7 10^3/uL (4.5-11.0)
[2018-10-08 05:48] LABS: CALCIUM 7.9 mg/dL (8.4-10.5); CARBON DIOXIDE 23.3 mmol/L (20.0-32)
[2018-10-08] MEDS: SYNTHROID PO SCH (06:37)
--- NOTE | 2018-10-08 06:50 | NUR ---
REPORT REPORT RECEIVED FROM CHRIS DUGGAN LVN ASSUMED CARE OF PT
[2018-10-08 08:05] VITALS: BP 141/72
[2018-10-08] MEDS: PROTONIX IV IV SCH (08:57)
[2018-10-08] MEDS: BACID PO SCH ×3 (08:57→17:14)
[2018-10-08] MEDS: ROCEPHIN 2,000 MG in NS 100ML 100 ML IV SCH ×3 (08:57→22:17)
[2018-10-08] MEDS ORDERED: ZOSYN 3.375 GRAM VIAL 3.375 GM in NS 100ML 100 ML IV SCH (09:00)
[2018-10-08] MEDS: CIPRO 200 ML IV SCH ×2 (10:00→20:59)
--- NOTE | 2018-10-08 10:33 | NUR ---
AMBULATE PT AMBULATED THE HALLS 200 FEET WITH WALKER AND STAND BY ASSIST BY FAMILY. PT TOLERATED WELL. AT THIS TIME. PT DOES NOT WANT TO BE PLACED IN RESIDENTIAL BUT POSSIBLY HOME HEALTH CARE. WILL INFORM CASE MANAGEMENT ABOUT HOME HEALTH PLACEMENT.
[2018-10-08 11:48] VITALS: BP 144/78
--- NOTE | 2018-10-08 11:50 | NUR ---
STATUS PT C/O OF NAUSEA, DR DIAZ NOTIFIED. ORDER RECEIVED FOR ZOFRAN 4MG IV Q6 PRN FOR NAUSEA
[2018-10-08] MEDS: TYLENOL PO PRN (12:29)
[2018-10-08] MEDS: VANCOMYCIN HCL 1 GM in NS 250ML 250 ML IV SCH ×2 (12:29→22:58)
[2018-10-08] MEDS ORDERED: ZOFRAN IV PRN (12:30)
[2018-10-08 16:01] VITALS: BP 129/47
[2018-10-08] MEDS: LOVENOX SQ SCH (16:30)
--- NOTE | 2018-10-08 17:44 | PRM.PN ---
Subjective Subjective Date: Oct 08, 2018 Time: 17:35 Subjective Continues to improve. Mental status much improved. Still some delayed response occasionally but overall speech better. Oriented 4. Still with headache but this too is improving. Weakness is main complaint that this seems to be slowly improving. VTE VTE Risk Total Score: 5 VTE Risk Score VTE Risk: Score 0-1 = Low Risk (Aggressive mobilization; early ambulation; no VTE prophylaxis required) Score 2: Moderate Risk (Intermittent/Pneumatic Compression Device OR Lovenox/Heparin/Coumadin) Score 3-4: High Risk (Intermittent/Pneumatic Compression Device AND Lovenox/Heparin/Coumadin) Score > or =5: Highest Risk (Intermittent/Pneumatic Compression Device AND Lovenox/Heparin/Coumadin) Review of Systems Constitutional: Weakness; No: Fever Respiratory: No: Cough, Dry, Shortness of breath, SOB with excertion, Wheezing , Hemoptysis, Pleuritic Pain, Sputum, Wheezing, Other Cardiovascular: No: Chest Pain, Palpitations, Orthopnea, Paroxysmal Noc. Dyspnea, Edema, Lt Headedness, Other Gastrointestinal: No: Nausea, Vomiting, Abdominal Pain, Diarrhea, Constipation , Melena, Hematochezia, Other Musculoskeletal: neck pain Neurological: Other ( headache) Allergies: Coded Allergies: No Known Allergies (Unverified , 10/05/18) Scheduled Levothyroxine Sodium (Levothyroxine Sodium), 1 TAB PO DAILY, (Reported) Objective Vitals and I/O Vital Sign - Last 24 Hours 10/07/18 10/07/18 10/08/18 10/08/18 20:00 22:59 00:20 04:30 Temp 98.9 98.4 98.4 98.9 98.4 98.4 Pulse 89 68 68 Resp 18 17 17 B/P (MAP) 121/78 (92) 135/70 (91) 143/68 (93) Pulse Ox 95 99 97 O2 Delivery Room Air Room Air Room Air Room Air 10/08/18 10/08/18 10/08/18 10/08/18 08:05 08:53 11:48 16:01 Temp 100.2 100.0 96.4 100.2 100.0 96.4 Pulse 79 61 52 Resp 18 16 18 B/P (MAP) 141/72 (95) 144/78 (100) 129/47 (74) Pulse Ox 98 96 99 O2 Delivery Room Air Room Air Room Air Intake and Output 10/07/18 10/07/18 10/08/18 15:01 23:01 07:01 Intake Total 240 ml 240 ml 360 ml Output Total 350 ml 275 ml 950 ml Balance -110 ml -35 ml -590 ml General: Alert, Oriented X3, Cooperative, No acute distress Neck: No JVD, No thyromegaly, +2 carotid pulse wo bruit, Other ( very mild tenderness on the trapezius posterior neck) Lungs: Clear to auscultation Heart: Regular rate, Normal S1, Normal S2, No murmurs Abdomen: Normal bowel sounds, Soft, No tenderness, No masses Psych/Mental Status: Other ( Improved mentation and speech) Course Sepsis Screening Results: Posi: NEGATIVE Sepsis Qualifier/Stage: NO DEFINITE RISK Duration or Total Time Spent w: 60 mins Vitals & review Data Vital Sign - Last 24 Hours 10/06/18 10/06/18 10/06/18 10/07/18 20:10 20:13 23:58 03:59 Temp 99.1 97.8 97.9 99.1 97.8 97.9 Pulse 88 69 74 Resp 20 18 18 B/P (MAP) 116/50 (72) 116/67 (83) 109/62 (78) Pulse Ox 100 100 100 O2 Delivery Room Air Room Air Room Air Room Air 10/07/18 10/07/18 10/07/18 10/07/18 06:30 08:13 12:26 16:46 Temp 98.4 97.4 97.9 98.4 97.4 97.9 Pulse 88 70 80 Resp 18 18 18 B/P (MAP) 148/88 (108) 138/85 (102) 144/83 (103) Pulse Ox 98 98 98 O2 Delivery Room Air Room Air Room Air Room Air Intake and Output 10/06/18 10/06/18 10/07/18 15:01 23:01 07:01 Intake Total 2328 ml Output Total 400 ml 1100 ml Balance -400 ml 1228 ml Laboratory Tests Test 10/05/18 18:30 10/06/18 04:55 10/06/18 05:14 10/06/18 11:10 Urine Collection Type VOID Urine Color DARK YELLOW Urine Appearance CLOUDY Urine Bilirubin NEGATIVE MG/DL Urine Ketones 5 mg/dL Urine Specific [place] 1.020 Urine pH 5 Urine Protein 100 mg/dL Urine Urobilinogen 8.0 Urine Nitrate NEGATIVE Urine Leukocyte Esterase 100/ul 1+ Urine Blood 150 3+ Urine RBC 2-5 RBC/HPF Urine WBC 10-25 WBC/HPF Urine Squamous Epithelial Cells MANY #/HPF Urine Bacteria MODERATE Urine Yeast RARE Urine Glucose NORMAL White Blood Count 8.8 10^3/uL Red Blood Count 4.21 10^6/uL Hemoglobin 12.7 g/dL Hematocrit 36.1 % Mean Corpuscular Volume 85.7 fL Mean Corpuscular Hemoglobin 30.2 pg Mean Corpuscular Hemoglobin Concent 35.2 g/dL Red Cell Distribution Width 12.6 % Platelet Count 108 10^3/uL Mean Platelet Volume 10.3 fL Neutrophils (%) (Auto) 88.0 % Lymphocytes (%) (Auto) 5.0 % Monocytes (%) (Auto) 6.3 % Neutrophils # (Auto) 7.8 10^3/uL Lymphocytes # (Auto) 0.4 10^3/uL Monocytes # (Auto) 0.6 10^3/uL Absolute Immature Granulocyte (auto 0.03 10^3 u/L Eosinophils % 0.3 % Basophils % 0.1 % Basophils # 0.0 10^3/uL Eosinophil Count 0.0 10^3/uL Sodium Level 135 mmol/L Potassium Level 3.0 mmol/L Chloride Level 99.0 mmol/L Carbon Dioxide Level 22.6 mmol/L Anion Gap 16.4 Blood Urea Nitrogen 10 mg/dL Creatinine 0.82 mg/dL Estimated GFR () 84.4 BUN/Creatinine Ratio 12.0 Glucose Level 115 mg/dL Hemoglobin A1c 5.1 % Calcium Level 8.1 mg/dL Total Bilirubin 2.3 mg/dL Aspartate Amino Transf (AST/SGOT) 38 U/L Alanine Aminotransferase (ALT/SGPT) 35 U/L Alkaline Phosphatase 84 U/L Total Creatine Kinase 297 U/L 312 U/L Total Protein 7.3 g/dL Albumin 2.7 g/dL Globulin 4.6 Vitamin B12 Level 372 pg/mL Thyroid Stimulating Hormone (TSH) 0.994 mIU/mL Free Thyroxine 1.13 ng/dL Thyroxine (T4) 5.7 ug/dL Free Triiodothyronine (T3) Index 1.10 Percent Immature Gran (Cell Imm) 0.30 % Differential Total Cells Counted 100 #CELLS Segmented Neutrophils 81 % Band Neutrophils 9 % Lymphocytes 6 % Monocytes 4 % Platelet Estimate ADEQUATE Platelet Morphology NORMAL Blood Morphology Comment NORMAL MORPHOLOGY Test 10/06/18 13:50 10/06/18 16:29 10/07/18 04:53 CSF Volume 7.0 ML CSF Appearance TURBID CSF Color BLOODY CSF WBC 324 /mm3 CSF RBC 80328 /mm3 CSF Neutrophils 73 % CSF Lymphocytes 20 % CSF Other Cells CSF Comment CSF Glucose 3 mg/dL CSF Total Protein 570 mg/dL White Blood Count 9.2 10^3/uL Red Blood Count 3.82 10^6/uL Hemoglobin 11.6 g/dL Hematocrit 33.1 % Mean Corpuscular Volume 86.6 fL Mean Corpuscular Hemoglobin 30.4 pg Mean Corpuscular Hemoglobin Concent 35.0 g/dL Red Cell Distribution Width 12.8 % Platelet Count 112 10^3/uL Mean Platelet Volume 10.4 fL Sodium Level 136 mmol/L Potassium Level 3.1 mmol/L Chloride Level 102.0 mmol/L Carbon Dioxide Level 24.8 mmol/L Anion Gap 12.3 Blood Urea Nitrogen 13 mg/dL Creatinine 0.77 mg/dL Estimated GFR () 90.5 BUN/Creatinine Ratio 16.0 Glucose Level 122 mg/dL Calcium Level 8.0 mg/dL Magnesium Level 2.1 mg/dL Total Bilirubin 1.4 mg/dL Aspartate Amino Transf (AST/SGOT) 34 U/L Alanine Aminotransferase (ALT/SGPT) 32 U/L Alkaline Phosphatase 73 U/L Total Protein 6.7 g/dL Albumin 2.3 g/dL Globulin 4.4 Current Medications Medications (Trade) Dose Ordered Sig/Lona PRN Reason Start Time Stop Time Status Last Admin Acetaminophen (Tylenol) 1,000 mg Q6HR PRN PAIN or Fever 10/05/18 23:00 11/04/18 22:59 10/07/18 16:52 Azithromycin 500 mg/Sodium Chloride 250 ml @ 175 mls/hr Q24HRS 10/06/18 12:30 11/05/18 12:29 10/07/18 12:33 Enoxaparin Sodium (Lovenox) 40 mg Q24HRS 10/06/18 16:00 11/05/18 15:59 10/07/18 16:19 Ketorolac Tromethamine (Toradol) 30 mg Q6HR PRN PAIN or Fever 10/05/18 23:00 10/10/18 22:59 10/07/18 12:33 Levothyroxine Sodium (Synthroid) 150 mcg ACB 10/08/18 06:30 11/07/18 06:29 Pantoprazole Sodium (Protonix Iv) 40 mg DAILY 10/07/18 09:00 11/06/18 08:59 10/06/18 12:28 Potassium Chloride/Dextrose/ Sod Cl 1,000 ml @ 75 mls/hr [id number] 10/05/18 23:00 11/04/18 22:59 10/07/18 03:27 Potassium Chloride (Klor-Con 10) 40 meq STAT 10/07/18 07:30 11/06/18 07:29 10/07/18 07:34 Sepsis Infection Criteria Pres: Documented Infection LEVEL 1 SEPSIS INFECTION CRITE: ABX Therapy, Flu-Pneumonia, Urinary Tract Infection LEVEL 2-SIRS (LIST ALL THAT AP: [id number] Cardiovascular Evidence: Not Assessed or None Hematologic Evidence: None/Not assessed Hepatic Evidence: None/Not assessed Metabolic Evidence: None/Not assessed Neurological Evidence: Altered Mental Status Respiratory Evidence: None/Not assessed Renal Evidence: None/Not assessed O2 Sat by Pulse Oximetry: 99 Assessment/Plan Assessment/Plan Problems: (1) Infectious encephalopathy Assessment & Plan: Secondary to multiple etiologies including bacteremia, sinusitis, urinary tract infection, and possibly meningitis. Nonetheless, improving rapidly. Continue current treatment and supportive management. ICD Code: G93.49 - Other encephalopathy; B99.9 - Unspecified infectious disease SNOMED: 38651786, 28872788 (2) Gram-positive cocci bacteremia Assessment & Plan: Likely source is still strep pharyngitis although meningitis possible. Nonetheless continue treatment with same antibiotics. ICD Code: R78.81 - Bacteremia SNOMED: 881278064, 757060829732 (3) Strep pharyngitis Status: Acute Assessment & Plan: Symptoms improving. Continue antibiotics. ICD Code: J02.0 - Streptococcal pharyngitis SNOMED: 09402411 (4) Meningitis, bacterial Assessment & Plan: Still awaiting final sensitivity and culture on cerebrospinal fluid. Lumbar puncture was traumatic and it's possible that results are showing the same results from the serum. However, it's prudent to continue treatment for bacterial meningitis as the risk benefit ratio is in her favor this way and that she is clinically improving. ICD Code: G00.9 - Bacterial meningitis, unspecified SNOMED: 25316216 (5) Altered mental status Status: Acute Assessment & Plan: Continues to improve daily. Likely etiology is infectious encephalopathy. Continue same and continue supportive care. ICD Code: R41.82 - Altered mental status, unspecified SNOMED: 074506483 (6) UTI (urinary tract infection) Status: Acute Assessment & Plan: On appropriate antibiotics. Bacteremia likely from a different source. ICD Code: N39.0 - Urinary tract infection, site not specified SNOMED: 03674744 (7) Hypokalemia Assessment & Plan: Continue to replace as needed. ICD Code: E87.6 - Hypokalemia SNOMED: 22776969 (8) Hypomagnesemia Assessment & Plan: Continue to replace as needed to keep potassium at 2 or greater. ICD Code: E83.42 - Hypomagnesemia SNOMED: 592817546 Problem Qualifiers (1) Altered mental status: Altered mental status type: unspecified Qualified Codes: R41.82 - Altered mental status, unspecified (2) UTI (urinary tract infection): Urinary tract infection type: site unspecified Hematuria presence: with hematuria Qualified Codes: N39.0 - Urinary tract infection, site not specified ; R31.9 - Hematuria, unspecified MIHIR DIAZ MD Oct 08, 2018 17:43
[2018-10-08 19:00] VITALS: BP 135/56
[2018-10-08] MEDS: TORADOL IV PRN (21:06)
--- NOTE | 2018-10-08 21:06 | NUR ---
toradol 30mg iv given for pain per prn order
--- NOTE | 2018-10-08 22:42 | NUR ---
RECEIVED REPORT FROM LAB OF POSITIVE BLOOD CULTURE, GRAM POSITIVE COCCI AND RARE GRAM NEGATIVE KEREN SEEN. DR DIAZ NOTIFIED AND ORDERED TO CONTINUE ON CURRENT ANTIBIOTIC TREATMENT.
[2018-10-09] VITALS: BP 142/72
[2018-10-09 04:17] VITALS: BP 141/73
[2018-10-09 05:06] LABS: BASOPHIL # 0.1 10^3/uL (0.0-0.1); BASOPHIL % 1.7 % (0.0-0.2); EOSINOPHIL # 0.1 10^3/uL (0.0-0.2); EOSINOPHIL % 0.7 % (0.0-5.0); HEMOGLOBIN 10.6 g/dL (12.0-15.0); LYMPHOCYTES # 2.6 10^3/uL (1.0-4.8); LYMPHOCYTES % 35.7 % (24.0-44.0); MEAN CELL HGB 30.2 pg (26-34); MEAN CELL HGB CONCENTRATION 35.1 g/dL (33-37); MEAN PLATELET VOLUME 10.8 fL (7.8-11.0); MONOCYTES # 0.8 10^3/uL (0.3-0.8); MONOCYTES % 10.7 % (5.0-12.0); NEUTROPHIL # 3.5 10^3/uL (1.8-7.7); NEUTROPHILS % 48.7 % (41.0-85.0); RED CELL DISTRIBUTION WIDTH 12.8 % (11.5-14.5); WHITE BLOOD CELL 7.3 10^3/uL (4.5-11.0)
[2018-10-09] MEDS: SYNTHROID PO SCH (05:12)
[2018-10-09 06:00] LABS: CARBON DIOXIDE 24.3 mmol/L (20.0-32)
[2018-10-09 06:01] LABS: CALCIUM 7.6 mg/dL (8.4-10.5)
[2018-10-09 06:25] LABS: BAND NEUTROPHILS 4 % (2-6); SEGMENTED NEUTROPHILS 52 % (31-76)
[2018-10-09 06:26] LABS: LYMPHOCYTE 29 % (25-36); MONOCYTE 11 % (3-9)
--- NOTE | 2018-10-09 06:49 | NUR ---
REPORT TO BETZY MONTEIRO
[2018-10-09] MEDS: D5W-1/2 NS/KCL 20MEQ 1,000 ML IV SCH ×2 (07:00→09:52)
[2018-10-09 08:09] VITALS: BP 125/54
[2018-10-09] MEDS: PROTONIX IV IV SCH (08:12)
[2018-10-09] MEDS: BACID PO SCH ×3 (08:12→17:07)
[2018-10-09] MEDS: CIPRO 200 ML IV SCH ×2 (08:13→21:03)
[2018-10-09] MEDS: ROCEPHIN 2,000 MG in NS 100ML 100 ML IV SCH ×2 (09:57→22:51)
--- NOTE | 2018-10-09 11:43 | PRM.PN ---
Subjective Subjective Date: Oct 09, 2018 Time: 11:34 Subjective continues to state she feels better. Denies headache or neck pain today. Denies any visual changes. she states her strength is improving. She has been able to walk in the hallway with staff. Denies any confusion. VTE VTE Risk Total Score: 5 VTE Risk Score VTE Risk: Score 0-1 = Low Risk (Aggressive mobilization; early ambulation; no VTE prophylaxis required) Score 2: Moderate Risk (Intermittent/Pneumatic Compression Device OR Lovenox/Heparin/Coumadin) Score 3-4: High Risk (Intermittent/Pneumatic Compression Device AND Lovenox/Heparin/Coumadin) Score > or =5: Highest Risk (Intermittent/Pneumatic Compression Device AND Lovenox/Heparin/Coumadin) Review of Systems Constitutional: Weakness; No: Fever Respiratory: No: Cough, Dry, Shortness of breath, SOB with excertion, Wheezing , Hemoptysis, Pleuritic Pain, Sputum, Wheezing, Other Cardiovascular: No: Chest Pain, Palpitations, Orthopnea, Paroxysmal Noc. Dyspnea, Edema, Lt Headedness, Other Gastrointestinal: No: Nausea, Vomiting, Abdominal Pain, Diarrhea, Constipation , Melena, Hematochezia, Other Musculoskeletal: No: neck pain Allergies: Coded Allergies: No Known Allergies (Unverified , 10/05/18) Scheduled Levothyroxine Sodium (Levothyroxine Sodium), 1 TAB PO DAILY, (Reported) Objective Vitals and I/O Vital Sign - Last 24 Hours 10/08/18 10/08/18 10/08/18 10/08/18 11:48 16:01 19:00 19:00 Temp 100.0 96.4 99.7 100.0 96.4 99.7 Pulse 61 52 65 Resp 16 18 18 B/P (MAP) 144/78 (100) 129/47 (74) 135/56 (82) Pulse Ox 96 99 98 O2 Delivery Room Air Room Air Room Air 10/09/18 10/09/18 10/09/18 10/09/18 00:00 04:17 08:09 08:10 Temp 99.4 98.9 98.0 99.4 98.9 98.0 Pulse 71 60 66 Resp 18 18 18 B/P (MAP) 142/72 (95) 141/73 (95) 125/54 (77) Pulse Ox 100 97 98 O2 Delivery Room Air Room Air Room Air Room Air Intake and Output 10/08/18 10/08/18 10/09/18 15:01 23:01 07:01 Intake Total 840 ml Output Total 2100 ml 1350 ml Balance -1260 ml -1350 ml General: Alert, Oriented X3, Cooperative, No acute distress Neck: No JVD, No thyromegaly, +2 carotid pulse wo bruit Lungs: Clear to auscultation Heart: Regular rate, Normal S1, Normal S2, No murmurs Abdomen: Normal bowel sounds, Soft, No tenderness, No masses Psych/Mental Status: Other ( Improved mentation and speech) Course Sepsis Screening Results: Posi: NEGATIVE Sepsis Qualifier/Stage: NO DEFINITE RISK Duration or Total Time Spent w: 60 mins Vitals & review Data Vital Sign - Last 24 Hours 10/06/18 10/06/18 10/06/18 10/07/18 20:10 20:13 23:58 03:59 Temp 99.1 97.8 97.9 99.1 97.8 97.9 Pulse 88 69 74 Resp 20 18 18 B/P (MAP) 116/50 (72) 116/67 (83) 109/62 (78) Pulse Ox 100 100 100 O2 Delivery Room Air Room Air Room Air Room Air 10/07/18 10/07/18 10/07/18 10/07/18 06:30 08:13 12:26 16:46 Temp 98.4 97.4 97.9 98.4 97.4 97.9 Pulse 88 70 80 Resp 18 18 18 B/P (MAP) 148/88 (108) 138/85 (102) 144/83 (103) Pulse Ox 98 98 98 O2 Delivery Room Air Room Air Room Air Room Air Intake and Output 10/06/18 10/06/18 10/07/18 15:01 23:01 07:01 Intake Total 2328 ml Output Total 400 ml 1100 ml Balance -400 ml 1228 ml Laboratory Tests Test 10/05/18 18:30 10/06/18 04:55 10/06/18 05:14 10/06/18 11:10 Urine Collection Type VOID Urine Color DARK YELLOW Urine Appearance CLOUDY Urine Bilirubin NEGATIVE MG/DL Urine Ketones 5 mg/dL Urine Specific [place] 1.020 Urine pH 5 Urine Protein 100 mg/dL Urine Urobilinogen 8.0 Urine Nitrate NEGATIVE Urine Leukocyte Esterase 100/ul 1+ Urine Blood 150 3+ Urine RBC 2-5 RBC/HPF Urine WBC 10-25 WBC/HPF Urine Squamous Epithelial Cells MANY #/HPF Urine Bacteria MODERATE Urine Yeast RARE Urine Glucose NORMAL White Blood Count 8.8 10^3/uL Red Blood Count 4.21 10^6/uL Hemoglobin 12.7 g/dL Hematocrit 36.1 % Mean Corpuscular Volume 85.7 fL Mean Corpuscular Hemoglobin 30.2 pg Mean Corpuscular Hemoglobin Concent 35.2 g/dL Red Cell Distribution Width 12.6 % Platelet Count 108 10^3/uL Mean Platelet Volume 10.3 fL Neutrophils (%) (Auto) 88.0 % Lymphocytes (%) (Auto) 5.0 % Monocytes (%) (Auto) 6.3 % Neutrophils # (Auto) 7.8 10^3/uL Lymphocytes # (Auto) 0.4 10^3/uL Monocytes # (Auto) 0.6 10^3/uL Absolute Immature Granulocyte (auto 0.03 10^3 u/L Eosinophils % 0.3 % Basophils % 0.1 % Basophils # 0.0 10^3/uL Eosinophil Count 0.0 10^3/uL Sodium Level 135 mmol/L Potassium Level 3.0 mmol/L Chloride Level 99.0 mmol/L Carbon Dioxide Level 22.6 mmol/L Anion Gap 16.4 Blood Urea Nitrogen 10 mg/dL Creatinine 0.82 mg/dL Estimated GFR () 84.4 BUN/Creatinine Ratio 12.0 Glucose Level 115 mg/dL Hemoglobin A1c 5.1 % Calcium Level 8.1 mg/dL Total Bilirubin 2.3 mg/dL Aspartate Amino Transf (AST/SGOT) 38 U/L Alanine Aminotransferase (ALT/SGPT) 35 U/L Alkaline Phosphatase 84 U/L Total Creatine Kinase 297 U/L 312 U/L Total Protein 7.3 g/dL Albumin 2.7 g/dL Globulin 4.6 Vitamin B12 Level 372 pg/mL Thyroid Stimulating Hormone (TSH) 0.994 mIU/mL Free Thyroxine 1.13 ng/dL Thyroxine (T4) 5.7 ug/dL Free Triiodothyronine (T3) Index 1.10 Percent Immature Gran (Cell Imm) 0.30 % Differential Total Cells Counted 100 #CELLS Segmented Neutrophils 81 % Band Neutrophils 9 % Lymphocytes 6 % Monocytes 4 % Platelet Estimate ADEQUATE Platelet Morphology NORMAL Blood Morphology Comment NORMAL MORPHOLOGY Test 10/06/18 13:50 10/06/18 16:29 10/07/18 04:53 CSF Volume 7.0 ML CSF Appearance TURBID CSF Color BLOODY CSF WBC 324 /mm3 CSF RBC 97476 /mm3 CSF Neutrophils 73 % CSF Lymphocytes 20 % CSF Other Cells CSF Comment CSF Glucose 3 mg/dL CSF Total Protein 570 mg/dL White Blood Count 9.2 10^3/uL Red Blood Count 3.82 10^6/uL Hemoglobin 11.6 g/dL Hematocrit 33.1 % Mean Corpuscular Volume 86.6 fL Mean Corpuscular Hemoglobin 30.4 pg Mean Corpuscular Hemoglobin Concent 35.0 g/dL Red Cell Distribution Width 12.8 % Platelet Count 112 10^3/uL Mean Platelet Volume 10.4 fL Sodium Level 136 mmol/L Potassium Level 3.1 mmol/L Chloride Level 102.0 mmol/L Carbon Dioxide Level 24.8 mmol/L Anion Gap 12.3 Blood Urea Nitrogen 13 mg/dL Creatinine 0.77 mg/dL Estimated GFR () 90.5 BUN/Creatinine Ratio 16.0 Glucose Level 122 mg/dL Calcium Level 8.0 mg/dL Magnesium Level 2.1 mg/dL Total Bilirubin 1.4 mg/dL Aspartate Amino Transf (AST/SGOT) 34 U/L Alanine Aminotransferase (ALT/SGPT) 32 U/L Alkaline Phosphatase 73 U/L Total Protein 6.7 g/dL Albumin 2.3 g/dL Globulin 4.4 Current Medications Medications (Trade) Dose Ordered Sig/Lona PRN Reason Start Time Stop Time Status Last Admin Acetaminophen (Tylenol) 1,000 mg Q6HR PRN PAIN or Fever 10/05/18 23:00 11/04/18 22:59 10/07/18 16:52 Azithromycin 500 mg/Sodium Chloride 250 ml @ 175 mls/hr Q24HRS 10/06/18 12:30 11/05/18 12:29 10/07/18 12:33 Enoxaparin Sodium (Lovenox) 40 mg Q24HRS 10/06/18 16:00 11/05/18 15:59 10/07/18 16:19 Ketorolac Tromethamine (Toradol) 30 mg Q6HR PRN PAIN or Fever 10/05/18 23:00 10/10/18 22:59 10/07/18 12:33 Levothyroxine Sodium (Synthroid) 150 mcg ACB 10/08/18 06:30 11/07/18 06:29 Pantoprazole Sodium (Protonix Iv) 40 mg DAILY 10/07/18 09:00 11/06/18 08:59 10/06/18 12:28 Potassium Chloride/Dextrose/ Sod Cl 1,000 ml @ 75 mls/hr [id number] 10/05/18 23:00 11/04/18 22:59 10/07/18 03:27 Potassium Chloride (Klor-Con 10) 40 meq STAT 10/07/18 07:30 11/06/18 07:29 10/07/18 07:34 Sepsis Infection Criteria Pres: Documented Infection LEVEL 1 SEPSIS INFECTION CRITE: ABX Therapy, Urinary Tract Infection LEVEL 2-SIRS (LIST ALL THAT AP: None/Not assessed Cardiovascular Evidence: Not Assessed or None Hematologic Evidence: None/Not assessed Hepatic Evidence: None/Not assessed Metabolic Evidence: None/Not assessed Neurological Evidence: None/Not assessed Respiratory Evidence: None/Not assessed Renal Evidence: None/Not assessed O2 Sat by Pulse Oximetry: 98 Assessment/Plan Assessment/Plan Problems: (1) Infectious encephalopathy Assessment & Plan: Likely multi-factorial etiology including urosepsis and streptococcal pneumonia bacteremia, as well as meningitis. she is improving significantly and rapidly. She is very close to her baseline. Can very likely go home in the next 48 hours or so ICD Code: G93.49 - Other encephalopathy; B99.9 - Unspecified infectious disease SNOMED: 64631406, 11032611 (2) Gram-positive cocci bacteremia Assessment & Plan: likely streptococcal pneumonia. Unknown if this came up from cerebrospinal fluid for what primary etiology was. No evidence of Pneumococcal pneumonia. continue ceftriaxone and vancomycin for now. ICD Code: R78.81 - Bacteremia SNOMED: 660103031, 124292321905 (3) Strep pharyngitis Status: Acute Assessment & Plan: May be the source of bacteremia. Most symptoms resolving. Continue antibiotics for now. ICD Code: J02.0 - Streptococcal pharyngitis SNOMED: 04739931 (4) Meningitis, bacterial Assessment & Plan: awaiting final culture identification and sensitivity. It' s possible that cerebrospinal fluid was contaminated with blood and that is what is showing signs of infection. However, her glucose was severely decreased and total protein she was very high as well as the patient having signs of meningitis. At this time I think we have to finish treatment of bacterial meningitis and also evaluate possible treatment of close contacts. ICD Code: G00.9 - Bacterial meningitis, unspecified SNOMED: 03265966 (5) UTI (urinary tract infection) Status: Acute Assessment & Plan: Positive for sensitive E coli. Most sensitive to ciprofloxacin. Continue same. ICD Code: N39.0 - Urinary tract infection, site not specified SNOMED: 29839929 (6) Protein-calorie malnutrition, severe Assessment & Plan: Present on admission based on patient's intake being reduced by 75% of her normal intake prior to admission. She needs nutrition consult as well as protein shakes with her meals. ICD Code: E43 - Unspecified severe protein-calorie malnutrition SNOMED: 750328657 Problem Qualifiers (1) UTI (urinary tract infection): Urinary tract infection type: site unspecified Hematuria presence: with hematuria Qualified Codes: N39.0 - Urinary tract infection, site not specified ; R31.9 - Hematuria, unspecified MIHIR DIAZ MD Oct 09, 2018 11:43
[2018-10-09] MEDS: TORADOL IV PRN (14:36)
[2018-10-09] MEDS ORDERED: VANCOMYCIN HCL 1 GM in NS 250ML 250 ML IV SCH (15:00)
[2018-10-09] MEDS: LOVENOX SQ SCH (16:07)
[2018-10-09 16:33] VITALS: BP 132/74
--- NOTE | 2018-10-09 17:35 | NUR ---
STATUS PATIENT RESTING PEACEFULLY IN BED WITH NO S/S OF DISTRESS. RESPIRATIONS EVEN, NON-LABORED. DENIES PAIN, CALL LIGHT IN REACH, BED IS LOW AND LOCKED. WILL CONTINUE TO MONITOR.
[2018-10-09 19:00] VITALS: BP 163/84
--- NOTE | 2018-10-09 19:00 | NUR ---
FOUND 1530 DOSE OF VANCOMYCIN CLIPPED, IT HAD NOT INFUSED. STARTED THAT DOSE AT THIS TIME. REPORT TO CHARGE NURSE FOLLOWING DOSES ARE RETIMED.
[2018-10-10] VITALS (7 sets, daily range): BP systolic 138–164; BP diastolic 63–77
[2018-10-10] MEDS: D5W-1/2 NS/KCL 20MEQ 1,000 ML IV SCH (00:22)
[2018-10-10] MEDS ORDERED: LANOLIN HYDROUS TP PRN (02:30)
[2018-10-10] MEDS: VANCOMYCIN HCL 1 GM in NS 250ML 250 ML IV SCH ×3 (02:31→19:35)
[2018-10-10 05:09] LABS: BASOPHIL # 0.2 10^3/uL (0.0-0.1); BASOPHIL % 2.3 % (0.0-0.2); EOSINOPHIL # 0.2 10^3/uL (0.0-0.2); EOSINOPHIL % 2.6 % (0.0-5.0); HEMOGLOBIN 10.8 g/dL (12.0-15.0); LYMPHOCYTES # 2.8 10^3/uL (1.0-4.8); LYMPHOCYTES % 36.1 % (24.0-44.0); MEAN CELL HGB 30.2 pg (26-34); MEAN CORP VOLUME 86.3 fL (78-100); MEAN PLATELET VOLUME 9.9 fL (7.8-11.0); MONOCYTES # 0.6 10^3/uL (0.3-0.8); MONOCYTES % 8.3 % (5.0-12.0); NEUTROPHIL # 3.3 10^3/uL (1.8-7.7); NEUTROPHILS % 42.7 % (41.0-85.0); RED CELL DISTRIBUTION WIDTH 12.9 % (11.5-14.5); WHITE BLOOD CELL 7.7 10^3/uL (4.5-11.0)
[2018-10-10 05:26] LABS: CALCIUM 8.4 mg/dL (8.4-10.5); CARBON DIOXIDE 22.4 mmol/L (20.0-32)
[2018-10-10] MEDS: SYNTHROID PO SCH (05:29)
--- NOTE | 2018-10-10 06:38 | NUR ---
REPORT TO BETZY MONTEIRO
[2018-10-10] MEDS: BACID PO SCH ×3 (08:22→19:03)
[2018-10-10] MEDS: PROTONIX IV IV SCH (08:22)
[2018-10-10] MEDS: CIPRO 200 ML IV SCH (08:22)
[2018-10-10] MEDS: ROCEPHIN 2,000 MG in NS 100ML 100 ML IV SCH (09:59)
[2018-10-10] MEDS: TORADOL IV PRN ×2 (10:04→16:19)
--- NOTE | 2018-10-10 11:45 | NUR ---
ASSISTED PATIENT TO TAKE SHOWER AT THIS TIME. CLEAN TOWELS AND SOAP PROVIDED AT THIS TIME.
--- NOTE | 2018-10-10 12:02 | PRM.PN ---
Subjective Subjective Date: Oct 10, 2018 Time: 11:45 Subjective Patient completed cx still pending. Patient still having Tinnitus, fullness but no other issues. Afebrile. No distress. VTE VTE Risk Total Score: 5 VTE Risk Score VTE Risk: Score 0-1 = Low Risk (Aggressive mobilization; early ambulation; no VTE prophylaxis required) Score 2: Moderate Risk (Intermittent/Pneumatic Compression Device OR Lovenox/Heparin/Coumadin) Score 3-4: High Risk (Intermittent/Pneumatic Compression Device AND Lovenox/Heparin/Coumadin) Score > or =5: Highest Risk (Intermittent/Pneumatic Compression Device AND Lovenox/Heparin/Coumadin) Review of Systems Allergies: Coded Allergies: No Known Allergies (Unverified , 10/05/18) Scheduled Levothyroxine Sodium (Levothyroxine Sodium), 1 TAB PO DAILY, (Reported) Objective Vitals and I/O Vital Sign - Last 24 Hours 10/09/18 10/09/18 10/09/18 10/10/18 16:33 19:00 19:00 00:35 Temp 97.9 98.0 98.4 97.9 98.0 98.4 Pulse 75 51 51 Resp 18 18 18 B/P (MAP) 132/74 (93) 163/84 (110) 148/65 (92) Pulse Ox 93 96 95 O2 Delivery Room Air Room Air Room Air Room Air 10/10/18 10/10/18 10/10/18 04:00 07:21 08:25 Temp 98.9 98.4 98.9 98.4 Pulse 51 63 Resp 18 16 B/P (MAP) 151/71 (97) 164/77 (106) Pulse Ox 100 95 O2 Delivery Room Air Room Air Room Air Intake and Output 10/09/18 10/09/18 10/10/18 15:01 23:01 07:01 Intake Total 160 ml 570 ml 400 ml Output Total 1100 ml 1950 ml Balance 160 ml -530 ml -1550 ml General: Alert, Oriented X3, Cooperative, No acute distress HEENT: Atraumatic, PERRLA, EOMI, Mucous membr. moist/pink Neck: No JVD, No thyromegaly, +2 carotid pulse wo bruit Lungs: Clear to auscultation, Normal air movement Heart: Regular rate, Normal S1, Normal S2, No murmurs Abdomen: Normal bowel sounds, Soft, No tenderness, No masses Extremities: No edema, Normal pulses, No tenderness/swelling Skin: No rashes, No breakdown, No significant lesion Neuro: Normal speech, Strength at 5/5 X4 ext, Normal tone, Sensation intact, Cranial nerves 3-12 NL Psych/Mental Status: Mental status NL, Mood NL All Results(Lab/Rad) Laboratory Tests Test 10/10/18 04:35 White Blood Count 7.7 10^3/uL Red Blood Count 3.58 10^6/uL Hemoglobin 10.8 g/dL Hematocrit 30.9 % Mean Corpuscular Volume 86.3 fL Mean Corpuscular Hemoglobin 30.2 pg Mean Corpuscular Hemoglobin Concent 35.0 g/dL Red Cell Distribution Width 12.9 % Platelet Count 239 10^3/uL Mean Platelet Volume 9.9 fL Neutrophils (%) (Auto) 42.7 % Lymphocytes (%) (Auto) 36.1 % Monocytes (%) (Auto) 8.3 % Neutrophils # (Auto) 3.3 10^3/uL Lymphocytes # (Auto) 2.8 10^3/uL Monocytes # (Auto) 0.6 10^3/uL Absolute Immature Granulocyte (auto 0.62 10^3 u/L Eosinophils % 2.6 % Basophils % 2.3 % Basophils # 0.2 10^3/uL Eosinophil Count 0.2 10^3/uL Sodium Level 140 mmol/L Potassium Level 3.5 mmol/L Chloride Level 106.0 mmol/L Carbon Dioxide Level 22.4 mmol/L Anion Gap 15.1 Blood Urea Nitrogen 6 mg/dL Creatinine 0.73 mg/dL Estimated GFR () 96.2 BUN/Creatinine Ratio 8.0 Glucose Level 110 mg/dL Calcium Level 8.4 mg/dL Total Bilirubin 0.5 mg/dL Aspartate Amino Transf (AST/SGOT) 75 U/L Alanine Aminotransferase (ALT/SGPT) 58 U/L Alkaline Phosphatase 87 U/L Total Protein 6.6 g/dL Albumin 2.1 g/dL Globulin 4.5 Percent Immature Gran (Cell Imm) 8.00 % Current Medications Medications (Trade) Dose Ordered Sig/Lona Route PRN Reason Start Time Stop Time Status Last Admin Dose Admin Ondansetron HCl (Zofran) 4 mg STK-MED ONCE .ROUTE 10/05/18 17:51 10/05/18 17:55 DC Ketorolac Tromethamine (Toradol) 30 mg STAT STAT IV 10/05/18 18:18 10/05/18 18:19 DC 10/05/18 18:22 Ketorolac Tromethamine (Toradol) 30 mg STK-MED ONCE .ROUTE 10/05/18 18:17 10/05/18 18:20 DC Potassium Chloride/Sodium Chloride 1,000 ml @ 100 mls/hr Q10H STAT IV 10/05/18 19:35 10/06/18 05:34 DC 10/05/18 19:45 Ceftriaxone Sodium 1000 mg/ Sodium Chloride 100 ml @ 100 mls/hr STAT STAT IV 10/05/18 19:35 10/05/18 20:35 DC 10/05/18 19:45 Sodium Chloride 100 ml @ ud STK-MED ONCE IV 10/05/18 19:45 10/05/18 19:49 DC Potassium Chloride/Sodium Chloride 1,000 ml @ ud STK-MED ONCE .ROUTE 10/05/18 19:46 10/05/18 19:50 DC Ceftriaxone Sodium (Rocephin) 1,000 mg STK-MED ONCE .ROUTE 10/05/18 19:46 10/05/18 19:50 DC Potassium Chloride/Dextrose/ Sod Cl 1,000 ml @ 75 mls/hr [id number] IV 10/05/18 23:00 11/04/18 22:59 10/10/18 00:22 Acetaminophen (Tylenol) 1,000 mg Q6HR PRN PO PAIN or Fever 10/05/18 23:00 11/04/18 22:59 10/08/18 12:29 Ketorolac Tromethamine (Toradol) 30 mg Q6HR PRN IV PAIN or Fever 10/05/18 23:00 10/10/18 22:59 10/10/18 10:04 Ceftriaxone Sodium 1000 mg/ Sodium Chloride 100 ml @ 100 mls/hr Q12HR IV 10/06/18 08:00 10/06/18 09:16 DC Pantoprazole Sodium (Protonix) 40 mg DAILY PO 10/06/18 09:00 10/06/18 12:14 DC Ceftriaxone Sodium 2000 mg/ Sodium Chloride 100 ml @ 100 mls/hr Q24HRS IV 10/06/18 09:00 10/07/18 17:28 DC 10/07/18 09:04 Azithromycin 500 mg/Sodium Chloride 250 ml @ 175 mls/hr Q24HRS IV 10/06/18 10:00 10/06/18 12:27 DC Lorazepam (Ativan) 2 mg STK-MED ONCE .ROUTE 10/06/18 09:59 10/06/18 10:03 DC Lorazepam (Ativan) 1.5 mg OT ONCE IV 10/06/18 10:30 10/06/18 10:36 DC 10/06/18 10:30 Pantoprazole Sodium (Protonix Iv) 40 mg STK-MED ONCE IV 10/06/18 12:07 10/06/18 12:11 DC Pantoprazole Sodium (Protonix Iv) 40 mg DAILY IV 10/07/18 09:00 11/06/18 08:59 10/10/18 08:22 Lorazepam (Ativan) 2 mg STK-MED ONCE .ROUTE 10/06/18 12:19 10/06/18 12:23 DC Azithromycin 500 mg/Sodium Chloride 250 ml @ 175 mls/hr Q24HRS IV 10/06/18 12:30 10/10/18 11:32 DC 10/07/18 12:33 Midazolam HCl (Versed) 5 mg STK-MED ONCE .ROUTE 10/06/18 13:33 10/06/18 13:36 DC Lidocaine HCl (Lidocaine 1% Vial) 200 mg STK-MED ONCE .ROUTE 10/06/18 13:35 10/06/18 13:38 DC Enoxaparin Sodium (Lovenox) 40 mg Q24HRS SQ 10/06/18 16:00 11/05/18 15:59 10/09/18 16:07 Potassium Chloride (Klor-Con 10) 40 meq DAILY PO 10/07/18 09:00 10/07/18 09:00 DC Potassium Chloride (Klor-Con 10) 40 meq STAT PO 10/07/18 07:30 11/06/18 07:29 10/07/18 07:34 Levothyroxine Sodium (Synthroid) 125 mcg DAILY STAT PO 10/07/18 07:27 10/07/18 07:37 DC Levothyroxine Sodium (Synthroid) 125 mcg STK-MED ONCE .ROUTE 10/07/18 07:29 10/07/18 07:37 DC Levothyroxine Sodium (Synthroid) 150 mcg STAT STAT PO 10/07/18 07:37 10/07/18 08:05 DC 10/07/18 07:42 Levothyroxine Sodium (Synthroid) 150 mcg ACB PO 10/08/18 06:30 11/07/18 06:29 10/10/18 05:29 Levothyroxine Sodium (Synthroid) 150 mcg STAT STAT PO 10/07/18 07:37 10/07/18 08:05 DC Vancomycin HCl 1900 mg/Sodium Chloride 100 ml @ 100 mls/hr Q12H IV 10/07/18 17:30 10/07/18 18:26 DC Vancomycin HCl 1 gm/Sodium Chloride 250 ml @ 175 mls/hr BID IV 10/07/18 21:00 10/09/18 09:45 DC 10/08/18 22:58 Vancomycin HCl 1 ml @ STK-MED ONCE .ROUTE 10/07/18 20:44 10/07/18 20:47 DC Sodium Chloride 250 ml @ STK-MED ONCE IV 10/07/18 20:44 10/07/18 20:47 DC Piperacillin Sod/ Tazobactam Sod 3.375 gm/Sodium Chloride 100 ml @ 100 mls/hr Q12HR IV 10/08/18 09:00 11/07/18 08:59 Cancel Lactobacillus Acidophilus (Bacid) 1 each TIDM PO 10/08/18 08:00 11/07/18 07:59 10/10/18 08:22 Ceftriaxone Sodium 2000 mg/ Sodium Chloride 100 ml @ 100 mls/hr Q12HR IV 10/08/18 08:00 10/10/18 11:32 DC 10/10/18 09:59 Ondansetron HCl (Zofran) 4 mg Q6 PRN IV NAUSEA / VOMITING 10/08/18 12:30 11/07/18 12:29 Vancomycin HCl 1 gm/Sodium Chloride 250 ml @ 175 mls/hr Q8H IV 10/09/18 15:00 10/09/18 21:18 DC 10/09/18 15:11 Vancomycin HCl 1 gm/Sodium Chloride 250 ml @ 175 mls/hr Q8H IV 10/10/18 03:00 3/7/19 02:59 10/10/18 02:31 Lanolin (Lanolin Hydrous) 1 gm PRN PRN TP 10/10/18 02:30 10/10/18 02:30 DC Ceftriaxone Sodium 2000 mg/ Sodium Chloride 100 ml @ 100 mls/hr DAILY IV 10/11/18 09:00 11/07/18 07:59 Course Sepsis Screening Results: Posi: NEGATIVE Sepsis Qualifier/Stage: NO DEFINITE RISK Duration or Total Time Spent w: 60 mins Vitals & review Data Vital Sign - Last 24 Hours 10/06/18 10/06/18 10/06/18 10/07/18 20:10 20:13 23:58 03:59 Temp 99.1 97.8 97.9 99.1 97.8 97.9 Pulse 88 69 74 Resp 20 18 18 B/P (MAP) 116/50 (72) 116/67 (83) 109/62 (78) Pulse Ox 100 100 100 O2 Delivery Room Air Room Air Room Air Room Air 10/07/18 10/07/18 10/07/18 10/07/18 06:30 08:13 12:26 16:46 Temp 98.4 97.4 97.9 98.4 97.4 97.9 Pulse 88 70 80 Resp 18 B/P (MAP) 148/88 (108) 138/85 (102) 144/83 (103) Pulse Ox 98 98 98 O2 Delivery Room Air Room Air Room Air Room Air Intake and Output 10/06/18 10/06/18 10/07/18 15:01 23:01 07:01 Intake Total 2328 ml Output Total 400 ml 1100 ml Balance -400 ml 1228 ml Laboratory Tests Test 10/05/18 18:30 10/06/18 04:55 10/06/18 05:14 10/06/18 11:10 Urine Collection Type VOID Urine Color DARK YELLOW Urine Appearance CLOUDY Urine Bilirubin NEGATIVE MG/DL Urine Ketones 5 mg/dL Urine Specific [place] 1.020 Urine pH 5 Urine Protein 100 mg/dL Urine Urobilinogen 8.0 Urine Nitrate NEGATIVE Urine Leukocyte Esterase 100/ul 1+ Urine Blood 150 3+ Urine RBC 2-5 RBC/HPF Urine WBC 10-25 WBC/HPF Urine Squamous Epithelial Cells MANY #/HPF Urine Bacteria MODERATE Urine Yeast RARE Urine Glucose NORMAL White Blood Count 8.8 10^3/uL Red Blood Count 4.21 10^6/uL Hemoglobin 12.7 g/dL Hematocrit 36.1 % Mean Corpuscular Volume 85.7 fL Mean Corpuscular Hemoglobin 30.2 pg Mean Corpuscular Hemoglobin Concent 35.2 g/dL Red Cell Distribution Width 12.6 % Platelet Count 108 10^3/uL Mean Platelet Volume 10.3 fL Neutrophils (%) (Auto) 88.0 % Lymphocytes (%) (Auto) 5.0 % Monocytes (%) (Auto) 6.3 % Neutrophils # (Auto) 7.8 10^3/uL Lymphocytes # (Auto) 0.4 10^3/uL Monocytes # (Auto) 0.6 10^3/uL Absolute Immature Granulocyte (auto 0.03 10^3 u/L Eosinophils % 0.3 % Basophils % 0.1 % Basophils # 0.0 10^3/uL Eosinophil Count 0.0 10^3/uL Sodium Level 135 mmol/L Potassium Level 3.0 mmol/L Chloride Level 99.0 mmol/L Carbon Dioxide Level 22.6 mmol/L Anion Gap 16.4 Blood Urea Nitrogen 10 mg/dL Creatinine 0.82 mg/dL Estimated GFR () 84.4 BUN/Creatinine Ratio 12.0 Glucose Level 115 mg/dL Hemoglobin A1c 5.1 % Calcium Level 8.1 mg/dL Total Bilirubin 2.3 mg/dL Aspartate Amino Transf (AST/SGOT) 38 U/L Alanine Aminotransferase (ALT/SGPT) 35 U/L Alkaline Phosphatase 84 U/L Total Creatine Kinase 297 U/L 312 U/L Total Protein 7.3 g/dL Albumin 2.7 g/dL Globulin 4.6 Vitamin B12 Level 372 pg/mL Thyroid Stimulating Hormone (TSH) 0.994 mIU/mL Free Thyroxine 1.13 ng/dL Thyroxine (T4) 5.7 ug/dL Free Triiodothyronine (T3) Index 1.10 Percent Immature Gran (Cell Imm) 0.30 % Differential Total Cells Counted 100 #CELLS Segmented Neutrophils 81 % Band Neutrophils 9 % Lymphocytes 6 % Monocytes 4 % Platelet Estimate ADEQUATE Platelet Morphology NORMAL Blood Morphology Comment NORMAL MORPHOLOGY Test 10/06/18 13:50 10/06/18 16:29 10/07/18 04:53 CSF Volume 7.0 ML CSF Appearance TURBID CSF Color BLOODY CSF WBC 324 /mm3 CSF RBC 85462 /mm3 CSF Neutrophils 73 % CSF Lymphocytes 20 % CSF Other Cells CSF Comment CSF Glucose 3 mg/dL CSF Total Protein 570 mg/dL White Blood Count 9.2 10^3/uL Red Blood Count 3.82 10^6/uL Hemoglobin 11.6 g/dL Hematocrit 33.1 % Mean Corpuscular Volume 86.6 fL Mean Corpuscular Hemoglobin 30.4 pg Mean Corpuscular Hemoglobin Concent 35.0 g/dL Red Cell Distribution Width 12.8 % Platelet Count 112 10^3/uL Mean Platelet Volume 10.4 fL Sodium Level 136 mmol/L Potassium Level 3.1 mmol/L Chloride Level 102.0 mmol/L Carbon Dioxide Level 24.8 mmol/L Anion Gap 12.3 Blood Urea Nitrogen 13 mg/dL Creatinine 0.77 mg/dL Estimated GFR () 90.5 BUN/Creatinine Ratio 16.0 Glucose Level 122 mg/dL Calcium Level 8.0 mg/dL Magnesium Level 2.1 mg/dL Total Bilirubin 1.4 mg/dL Aspartate Amino Transf (AST/SGOT) 34 U/L Alanine Aminotransferase (ALT/SGPT) 32 U/L Alkaline Phosphatase 73 U/L Total Protein 6.7 g/dL Albumin 2.3 g/dL Globulin 4.4 Current Medications Medications (Trade) Dose Ordered Sig/Lona PRN Reason Start Time Stop Time Status Last Admin Acetaminophen (Tylenol) 1,000 mg Q6HR PRN PAIN or Fever 10/05/18 23:00 11/04/18 22:59 10/07/18 16:52 Azithromycin 500 mg/Sodium Chloride 250 ml @ 175 mls/hr Q24HRS 10/06/18 12:30 11/05/18 12:29 10/07/18 12:33 Enoxaparin Sodium (Lovenox) 40 mg Q24HRS 10/06/18 16:00 11/05/18 15:59 10/07/18 16:19 Ketorolac Tromethamine (Toradol) 30 mg Q6HR PRN PAIN or Fever 10/05/18 23:00 10/10/18 22:59 10/07/18 12:33 Levothyroxine Sodium (Synthroid) 150 mcg ACB 10/08/18 06:30 11/07/18 06:29 Pantoprazole Sodium (Protonix Iv) 40 mg DAILY 10/07/18 09:00 11/06/18 08:59 10/06/18 12:28 Potassium Chloride/Dextrose/ Sod Cl 1,000 ml @ 75 mls/hr [id number] 10/05/18 23:00 11/04/18 22:59 10/07/18 03:27 Potassium Chloride (Klor-Con 10) 40 meq STAT 10/07/18 07:30 11/06/18 07:29 10/07/18 07:34 Sepsis Infection Criteria Pres: Documented Infection LEVEL 1 SEPSIS INFECTION CRITE: ABX Therapy LEVEL 2-SIRS (LIST ALL THAT AP: None/Not assessed Cardiovascular Evidence: Not Assessed or None Hematologic Evidence: None/Not assessed Hepatic Evidence: None/Not assessed Metabolic Evidence: None/Not assessed Neurological Evidence: None/Not assessed Respiratory Evidence: None/Not assessed Renal Evidence: None/Not assessed O2 Sat by Pulse Oximetry: 95 Assessment/Plan Assessment/Plan Assessment/Plan Patient is a 68 F PMH of Hypothyroidism, GERD, HTN presenting with AMS, fever, and cough. Plan 1. Metabolic/Infectious Encephalopathy: 2/2 Sepsis, Bacteremia, Meningitis. Resolved now. Cont IV abx. 2. Strep Pneumoniae Bacteremia: cont IV abx, awaiting final cx with sensitivities. D/C azithromycin/Cipro 3. UTI: cont IV Vanc/Rocephin. D/C cipro/azithromycin. 4. Strep Pharyngitis: cont Rocephin. 5. Bacterial Meningitis: Cont IV abx, will f/u final cx for Senstivities 6. Hypothyroidism: cont home meds 7. PPx: PPI, Lovenox JAMIN PAEZ MD Oct 10, 2018 12:02
--- NOTE | 2018-10-10 13:40 | NUR ---
STATUS PATIENT RESTING PEACEFULLY IN BEDSIDE CHAIR AT THIS TIME DOING A CROSSWORD PUZZLE. RESPIRATIONS EVEN, NON-LABORED. DENIES PAIN AT THIS TIME. DENIES NEEDS AT THIS TIME. CALL LIGHT IN REACH, BED IS LOW AND LOCKED. WILL CONTINUE TO MONITOR PATIENT.
[2018-10-10] MEDS: LOVENOX SQ SCH (16:18)
--- NOTE | 2018-10-10 16:45 | NUR ---
AMBULATION PATIENT WAS ASSISTED TO AMBULATE 400 FEET AT THIS TIME WITH WALKER. PATIENT TOLERATED WELL, ASSISTED BACK TO BED WITH CALL LIGHT IN REACH, BED IS LOW AND LOCKED. WILL CONTINUE TO MONITOR.
--- NOTE | 2018-10-10 19:07 | NUR ---
Report received report from Doretha Perez LVN
[2018-10-11 00:52] VITALS: BP 180/88
[2018-10-11] MEDS: TYLENOL PO PRN ×2 (01:34→17:12)
--- NOTE | 2018-10-11 02:02 | NUR ---
Patient resting in bed with eyes closed. Resp even and non labored. NO s/s of distress noted at this time. Will continue to monitor. Call ight within reach.
[2018-10-11 02:37] LABS: BASOPHIL # 0.2 10^3/uL (0.0-0.1); BASOPHIL % 1.7 % (0.0-0.2); EOSINOPHIL # 0.3 10^3/uL (0.0-0.2); EOSINOPHIL % 3.9 % (0.0-5.0); HEMOGLOBIN 11.1 g/dL (12.0-15.0); LYMPHOCYTES # 2.6 10^3/uL (1.0-4.8); LYMPHOCYTES % 29.2 % (24.0-44.0); MEAN CELL HGB 30.6 pg (26-34); MEAN CELL HGB CONCENTRATION 35.6 g/dL (33-37); MEAN PLATELET VOLUME 9.5 fL (7.8-11.0); MONOCYTES # 0.8 10^3/uL (0.3-0.8); MONOCYTES % 9.5 % (5.0-12.0); NEUTROPHIL # 4.1 10^3/uL (1.8-7.7); NEUTROPHILS % 47.2 % (41.0-85.0); WHITE BLOOD CELL 8.7 10^3/uL (4.5-11.0)
[2018-10-11 02:51] LABS: CALCIUM 8.1 mg/dL (8.4-10.5); CARBON DIOXIDE 25.2 mmol/L (20.0-32)
[2018-10-11] MEDS: VANCOMYCIN HCL 1 GM in NS 250ML 250 ML IV SCH (03:11)
[2018-10-11 05:23] VITALS: BP 133/59
[2018-10-11] MEDS: SYNTHROID PO SCH (05:48)
--- NOTE | 2018-10-11 06:52 | NUR ---
Report Report given to Ivette Hanley RN
--- NOTE | 2018-10-11 06:52 | NUR ---
REPORT REPORT RECEIVED FROM DAGO MONTEIRO ASSUMED CARE OF PT
[2018-10-11 07:20] VITALS: BP 160/78
--- NOTE | 2018-10-11 08:27 | DIET.OP ---
Nutrition Asmt/Malnutrit 2-17 Actual Date of Review: Oct 10, 2018 Nutritional Screening: Malnutr/Diet Consult Diagnosis: Altered Mental Status Pertinent Medical Hx/Surgical: Per MD: Hypothyroidism, Hypertension, Osteoarthritis, Generalized anxiety, GERD Subjective Information: Consulted by MD because patient reported a poor appetite and was consuming less than 25% of her meals. The patient repoted that her appetite is improving, but that she does not eat much at meals because she tends to snack all day due to her recent Gastric Sleeve 2 years ago. She does not take any vitamins or minerals which were encouraged going foward. She says she does not do many protein shakes because she is lactose intolerant. She reports that she has lost about 45 pounds since her surgery. Has had some N/V a few days ago. Current Diet Order/Nutrition S: Regular Pertinent Meds Current Medications Medications (Trade) Dose Ordered Sig/Lona PRN Reason Start Time Stop Time Status Last Admin Ceftriaxone Sodium 2000 mg/ Sodium Chloride 100 ml @ 100 mls/hr DAILY 10/11/18 09:00 11/07/18 07:59 Ondansetron HCl (Zofran) 4 mg Q6 PRN NAUSEA / VOMITING 10/08/18 12:30 11/07/18 12:29 Vancomycin HCl 1 gm/Sodium Chloride 250 ml @ 175 mls/hr Q8H 10/10/18 03:00 11/09/18 02:59 10/11/18 03:11 Pertinent Labs Laboratory Tests 10/11/18 02:30: White Blood Count 8.7, Red Blood Count 3.63L, Hemoglobin 11.1L, Hematocrit 31.2L , Mean Corpuscular Volume 86.0, Mean Corpuscular Hemoglobin 30.6, Mean Corpuscular Hemoglobin Concent 35.6, Red Cell Distribution Width 13.0, Platelet Count 290, Mean Platelet Volume 9.5, Neutrophils (%) (Auto) 47.2, Lymphocytes (% ) (Auto) 29.2, Monocytes (%) (Auto) 9.5, Neutrophils # (Auto) 4.1, Lymphocytes # (Auto) 2.6, Monocytes # (Auto) 0.8, Absolute Immature Granulocyte (auto 0.74, Eosinophils % 3.9, Basophils % 1.7H, Basophils # 0.2H, Eosinophil Count 0.3H, Sodium Level 140, Potassium Level 3.5L, Chloride Level 107.0, Carbon Dioxide Level 25.2, Anion Gap 11.3, Blood Urea Nitrogen 7, Creatinine 0.81, Estimated GFR () 85.3, BUN/Creatinine Ratio 8.0, Glucose Level 108, Calcium Level 8.1L, Total Bilirubin 0.5, Aspartate Amino Transf (AST/SGOT) 96H, Alanine Aminotransferase (ALT/SGPT) 81H, Alkaline Phosphatase 89, Total Protein 6.8, Albumin 2.3L, Globulin 4.5, Vancomycin Level Trough 19.1, Percent Immature Gran (Cell Imm) 8.50H Height (Feet): 5 Height (Inches): 5 Current Weight: 280 Usual Weight: 325 (Befor Gastric Sleeve) %UBW: 86 (% weight loss sincee her srgery) %IBW: 224 Weight Status: Morbid Obese GI Symptoms: [place], Vomitting Food Allergies: Yes (Lactose Intolerant) Cultural/Ethnic/Roman Catholic Yael: None reported Usual Diet at Home: Regular Current %PO: Fair(50-74%) BEE in Kcals: Use Current Weight Calories/Kcals/Kg: MsJ * 1.2-1.3 Kcals Calculated: [id number] Protein: Use Current Weight Protein g/k.0-1.4 g/kg Protein Calculated: 57g-80g Fluid: ml: [id number] or 1 mL/kcal Nutritional Problem: Nutr. Problems Present Problems: Inadequate Energy Intake Etiology: Altered Mental Status Signs/Symptoms: Per MD: Intake was reduced by 75% prior to admission Food and Nutrition Intake (Mod: <75% est energy req 7days Malnutrition related to morbid: Weight 200% of ideal wt RD Comments: Intervention: 1. Continue with current diet order 2. Provide education on vitamin and supplement information for Gastric Sleeve Monitor/evaluate: 1. Weight status 2. po intake Expected Outcomes Goal: 1. The patient will consume 75% or more of her meals to meet 100% of estimated energy needs over the next 2-3 days Discharge plan: 1. Discharge planning in progress Malnutrtion/Nutrition Risk Edu: Yes Diet education on vitamin and supplement information for Gastric Sleeve ANDREW GARDNER RD Oct 11, 2018 08:27
[2018-10-11] MEDS: BACID PO SCH ×3 (08:47→17:12)
[2018-10-11] MEDS: PROTONIX IV IV SCH (08:47)
[2018-10-11] MEDS ORDERED: ROCEPHIN 2,000 MG in NS 100ML 100 ML IV SCH (09:00)
--- NOTE | 2018-10-11 10:34 | NUR ---
DISCHARGE PLAN SPOKE TO PATIENT ABOUT DISCHARGE PLAN AND NEEDS. DISCUSSED WITH PATIENT THE FACT THAT SHE WILL NEED JAVA DEVELOPER ANALYST ABX THERAPY ADN NEED FOR PLACEMENT IN LONG TERM FACILITY OR HOME HEALTH UPON DISCHARGE. PATIENT STATES SHE HAS FAMILY THAT LIVES IN HOME WITH HER THAT CAN ASSIST HER WITH NEEDS BUT SHE WILL ACCEPT HOME HEALTH TO ASSIST WITH CARE WELL. PT HAS BEEN USING WALKER IN HOSPITAL AND DOESNT HAVE ONE AT HOME SO [employer] WILL BE CONTACTED- [place]. DR. SANTILLAN IS PCP. PT STATES SHE DOESN'T KNOW IF SHE WILL NEED FINANCIAL ASSISTANCE AT DISCHARGE IF MEDICATIONS ARE ORDERED. CM WITH FOLLOW UP WITH POSSIBLE NEED. DISCHARGE GOAL IS TO DC HOME WITH HOME HEALTH PROVIDED BY [facility]. NO FURTHER NEEDS AT THIS TIME. Addendum: 10/11/18 at 1502 by Blanca Hernandez RN-CM & POLE INCISOR OPERATOR [facility] DID NOT TAKE PATIENT DUE TO INSURANCE. REFERRAL SENT TO [facility]. CM CONTACTED [facility] AT [phone] CONCERNING ORDER FOR IV ANTIBIOTICS AND FAXED ORDER TO [facility]. ERITA IS TO DELIVER ANTIBIOTICS THIS AFTERNOON TO [facility]. DISCHARGE PLAN IS FOR [facility] TO FOLLOW AND TEACH FAMILY MEMBERS KONSTANTIN [phone] AND RADHA [phone] HOW TO ADMINISTER IV INFUSION THROUGH [facility]. ALSO [facility] TO CHANGE DRESSING WEEKLY TO [facility] AND DRAW VANC TROUGHS NEEDED AND REPORT RESULTS TO [facility]. PATIENT WILL HAVE A $10 COPAY WITH EACH DISPENSE OF MEDICATION, ESTIMATED $20-$30 THROUGHOUT ORDERED TIME FOR ANTIBIOTICS. CARLOTA PRYOR, STATED THEY COULD AFFORD COPAY. CM WILL CONTINUE TO FOLLOW. CM INFORMED ARLENE TROY CHARGE NURSE AND PATIENT OF THE ABOVE INFORMATION. Addendum: 10/11/18 at 1503 by Blanca Hernandez RN-CM & POLE INCISOR OPERATOR CM SENT ORDER FOR WALKER TO [facility]. WALKER CAN BE PICKED UP AT ANYTIME FROM [facility].
[2018-10-11] MEDS ORDERED: VANCOMYCIN HCL 1 GM in NS 250ML 250 ML IV SCH (13:00)
[2018-10-11 13:05] VITALS: BP 143/83
--- NOTE | 2018-10-11 16:06 | NUR ---
DENTURES KOLTON OROPEZA RN STATED TO PT PER ADMINISTRATION. "GO TO THE DENTIST AND HAVE THEM CALL THE HOSPITAL AND WORK WITH THEM. WE WILL GET REPLACE YOUR DENTURES." KOLTON OROPEZA RN GAVE PT A BUSINESS CARD OF THE NUMBER TO CALL. PT VERBALIZED UNDERSTANDING.
[2018-10-11 16:27] VITALS: BP 156/76
[2018-10-11] MEDS: LOVENOX SQ SCH (17:12)
--- NOTE | 2018-10-11 17:23 | PRM.DC ---
Discharge Summary Date of Discharge: Oct 11, 2018 Time of Request to Discharge: 17:13 Reason for Visit: Sepsis, Bacterial Meningitis, Strep Pneumonia Bacteremia Hospital Course Patient was admitted with cough, shortness of breath, and AMS. Patient started on Sepsis treatment with aggressive fluid hydration and IV abx. Patient 2/2 encephalopathy underwent LP with CSF studies and cx. Patient also had blood dx drawn. Patient was found to have positive strep screen as well. Patient had CSF studies return consistent with Bacterial Meningitis from Strep Pneumoniae. Patient blood cx returned positive x 1 with Strep Pneumoniae as well. Patient was continued on IV abx and IVF resuscitation and improved dramatically during hospital stay. She had become more alert and clinically had improved. Patient did have a UTI as well. All cultures monitored and IV abx changed accordingly and deescalated when appropriate. After all cultures had completed with sensitivities, it was determined that patient would need PICC placement and two week total course of IV abx. Patient had PICC team place line and Home Health setup for administration of long-term IV abx. Patient UTI was treated appropriately inpatient with IV abx. Patient will be sent home on IV Vancomycin for 14 total days of administration to cover Bacteremia and Bacterial meningitis. Home Health was established and abx delivered to patient in hospital prior to d/c. Patient feels much better and agrees with plan of care. All questions answered and she understands all discharge instructions. She will f/u with PCP within 1 week of d/c. General: Alert, Oriented X3, Cooperative, No acute distress HEENT: Atraumatic, PERRLA, EOMI, Mucous membr. moist/pink Neck: Supple, No JVD Lungs: Clear to auscultation, Normal air movement Heart: Regular rate, Normal S1, Normal S2, No murmurs Abdomen: Normal bowel sounds, Soft, No tenderness Extremities: No edema, Normal pulses, No tenderness/swelling Skin: No rashes, No breakdown, No significant lesion Neuro: Normal gait, Normal speech, Strength at 5/5 X4 ext, Normal tone, Sensation intact, Cranial nerves 3-12 NL Psych/Mental Status: Mental status NL, Mood NL Scheduled Levothyroxine Sodium (Levothyroxine Sodium), 1 TAB PO DAILY, (Reported) Sepsis Evaluation @ Discharge Vital Sign - Last 24 Hours 2/1/19 2/1/19 2/1/19 2/2/19 20:10 20:13 23:58 03:59 Temp 99.1 97.8 97.9 99.1 97.8 97.9 Pulse 88 69 74 Resp 18 B/P (MAP) 116/50 (72) 116/67 (83) 109/62 (78) Pulse Ox 100 100 100 O2 Delivery Room Air Room Air Room Air Room Air 10/07/18 10/07/18 10/07/18 10/07/18 06:30 08:13 12:26 16:46 Temp 98.4 97.4 97.9 98.4 97.4 97.9 Pulse 88 70 80 Resp 18 B/P (MAP) 148/88 (108) 138/85 (102) 144/83 (103) Pulse Ox 98 98 98 O2 Delivery Room Air Room Air Room Air Room Air Intake and Output 10/06/18 10/06/18 10/07/18 15:01 23:01 07:01 Intake Total 2328 ml Output Total 400 ml 1100 ml Balance -400 ml 1228 ml Laboratory Tests Test 10/05/18 18:30 10/06/18 04:55 10/06/18 05:14 10/06/18 11:10 Urine Collection Type VOID Urine Color DARK YELLOW Urine Appearance CLOUDY Urine Bilirubin NEGATIVE MG/DL Urine Ketones 5 mg/dL Urine Specific [place] 1.020 Urine pH 5 Urine Protein 100 mg/dL Urine Urobilinogen 8.0 Urine Nitrate NEGATIVE Urine Leukocyte Esterase 100/ul 1+ Urine Blood 150 3+ Urine RBC 2-5 RBC/HPF Urine WBC 10-25 WBC/HPF Urine Squamous Epithelial Cells MANY #/HPF Urine Bacteria MODERATE Urine Yeast RARE Urine Glucose NORMAL White Blood Count 8.8 10^3/uL Red Blood Count 4.21 10^6/uL Hemoglobin 12.7 g/dL Hematocrit 36.1 % Mean Corpuscular Volume 85.7 fL Mean Corpuscular Hemoglobin 30.2 pg Mean Corpuscular Hemoglobin Concent 35.2 g/dL Red Cell Distribution Width 12.6 % Platelet Count 108 10^3/uL Mean Platelet Volume 10.3 fL Neutrophils (%) (Auto) 88.0 % Lymphocytes (%) (Auto) 5.0 % Monocytes (%) (Auto) 6.3 % Neutrophils # (Auto) 7.8 10^3/uL Lymphocytes # (Auto) 0.4 10^3/uL Monocytes # (Auto) 0.6 10^3/uL Absolute Immature Granulocyte (auto 0.03 10^3 u/L Eosinophils % 0.3 % Basophils % 0.1 % Basophils # 0.0 10^3/uL Eosinophil Count 0.0 10^3/uL Sodium Level 135 mmol/L Potassium Level 3.0 mmol/L Chloride Level 99.0 mmol/L Carbon Dioxide Level 22.6 mmol/L Anion Gap 16.4 Blood Urea Nitrogen 10 mg/dL Creatinine 0.82 mg/dL Estimated GFR () 84.4 BUN/Creatinine Ratio 12.0 Glucose Level 115 mg/dL Hemoglobin A1c 5.1 % Calcium Level 8.1 mg/dL Total Bilirubin 2.3 mg/dL Aspartate Amino Transf (AST/SGOT) 38 U/L Alanine Aminotransferase (ALT/SGPT) 35 U/L Alkaline Phosphatase 84 U/L Total Creatine Kinase 297 U/L 312 U/L Total Protein 7.3 g/dL Albumin 2.7 g/dL Globulin 4.6 Vitamin B12 Level 372 pg/mL Thyroid Stimulating Hormone (TSH) 0.994 mIU/mL Free Thyroxine 1.13 ng/dL Thyroxine (T4) 5.7 ug/dL Free Triiodothyronine (T3) Index 1.10 Percent Immature Gran (Cell Imm) 0.30 % Differential Total Cells Counted 100 #CELLS Segmented Neutrophils 81 % Band Neutrophils 9 % Lymphocytes 6 % Monocytes 4 % Platelet Estimate ADEQUATE Platelet Morphology NORMAL Blood Morphology Comment NORMAL MORPHOLOGY Test 10/06/18 13:50 10/06/18 16:29 10/07/18 04:53 CSF Volume 7.0 ML CSF Appearance TURBID CSF Color BLOODY CSF WBC 324 /mm3 CSF RBC 81245 /mm3 CSF Neutrophils 73 % CSF Lymphocytes 20 % CSF Other Cells CSF Comment CSF Glucose 3 mg/dL CSF Total Protein 570 mg/dL White Blood Count 9.2 10^3/uL Red Blood Count 3.82 10^6/uL Hemoglobin 11.6 g/dL Hematocrit 33.1 % Mean Corpuscular Volume 86.6 fL Mean Corpuscular Hemoglobin 30.4 pg Mean Corpuscular Hemoglobin Concent 35.0 g/dL Red Cell Distribution Width 12.8 % Platelet Count 112 10^3/uL Mean Platelet Volume 10.4 fL Sodium Level 136 mmol/L Potassium Level 3.1 mmol/L Chloride Level 102.0 mmol/L Carbon Dioxide Level 24.8 mmol/L Anion Gap 12.3 Blood Urea Nitrogen 13 mg/dL Creatinine 0.77 mg/dL Estimated GFR () 90.5 BUN/Creatinine Ratio 16.0 Glucose Level 122 mg/dL Calcium Level 8.0 mg/dL Magnesium Level 2.1 mg/dL Total Bilirubin 1.4 mg/dL Aspartate Amino Transf (AST/SGOT) 34 U/L Alanine Aminotransferase (ALT/SGPT) 32 U/L Alkaline Phosphatase 73 U/L Total Protein 6.7 g/dL Albumin 2.3 g/dL Globulin 4.4 Current Medications Medications (Trade) Dose Ordered Sig/Lona PRN Reason Start Time Stop Time Status Last Admin Acetaminophen (Tylenol) 1,000 mg Q6HR PRN PAIN or Fever 10/05/18 23:00 11/04/18 22:59 10/07/18 16:52 Azithromycin 500 mg/Sodium Chloride 250 ml @ 175 mls/hr Q24HRS 10/06/18 12:30 11/05/18 12:29 10/07/18 12:33 Enoxaparin Sodium (Lovenox) 40 mg Q24HRS 10/06/18 16:00 11/05/18 15:59 10/07/18 16:19 Ketorolac Tromethamine (Toradol) 30 mg Q6HR PRN PAIN or Fever 10/05/18 23:00 10/10/18 22:59 10/07/18 12:33 Levothyroxine Sodium (Synthroid) 150 mcg ACB 10/08/18 06:30 11/07/18 06:29 Pantoprazole Sodium (Protonix Iv) 40 mg DAILY 10/07/18 09:00 11/06/18 08:59 10/06/18 12:28 Potassium Chloride/Dextrose/ Sod Cl 1,000 ml @ 75 mls/hr [id number] 10/05/18 23:00 11/04/18 22:59 10/07/18 03:27 Potassium Chloride (Klor-Con 10) 40 meq STAT 10/07/18 07:30 11/06/18 07:29 10/07/18 07:34 Course Sepsis Screening Results: Posi: NEGATIVE Sepsis Qualifier/Stage: NO DEFINITE RISK Duration or Total Time Spent w: 60 mins Vitals & review Data Vital Sign - Last 24 Hours 10/06/18 10/06/18 10/06/18 10/07/18 20:10 20:13 23:58 03:59 Temp 99.1 97.8 97.9 99.1 97.8 97.9 Pulse 88 69 74 Resp 20 18 B/P (MAP) 116/50 (72) 116/67 (83) 109/62 (78) Pulse Ox 100 100 100 O2 Delivery Room Air Room Air Room Air Room Air 10/07/18 10/07/18 10/07/18 10/07/18 06:30 08:13 12:26 16:46 Temp 98.4 97.4 97.9 98.4 97.4 97.9 Pulse 88 70 80 Resp 18 B/P (MAP) 148/88 (108) 138/85 (102) 144/83 (103) Pulse Ox 98 98 98 O2 Delivery Room Air Room Air Room Air Room Air Intake and Output 10/06/18 10/06/18 10/07/18 15:01 23:01 07:01 Intake Total 2328 ml Output Total 400 ml 1100 ml Balance -400 ml 1228 ml Laboratory Tests Test 10/05/18 18:30 10/06/18 04:55 10/06/18 05:14 10/06/18 11:10 Urine Collection Type VOID Urine Color DARK YELLOW Urine Appearance CLOUDY Urine Bilirubin NEGATIVE MG/DL Urine Ketones 5 mg/dL Urine Specific [place] 1.020 Urine pH 5 Urine Protein 100 mg/dL Urine Urobilinogen 8.0 Urine Nitrate NEGATIVE Urine Leukocyte Esterase 100/ul 1+ Urine Blood 150 3+ Urine RBC 2-5 RBC/HPF Urine WBC 10-25 WBC/HPF Urine Squamous Epithelial Cells MANY #/HPF Urine Bacteria MODERATE Urine Yeast RARE Urine Glucose NORMAL White Blood Count 8.8 10^3/uL Red Blood Count 4.21 10^6/uL Hemoglobin 12.7 g/dL Hematocrit 36.1 % Mean Corpuscular Volume 85.7 fL Mean Corpuscular Hemoglobin 30.2 pg Mean Corpuscular Hemoglobin Concent 35.2 g/dL Red Cell Distribution Width 12.6 % Platelet Count 108 10^3/uL Mean Platelet Volume 10.3 fL Neutrophils (%) (Auto) 88.0 % Lymphocytes (%) (Auto) 5.0 % Monocytes (%) (Auto) 6.3 % Neutrophils # (Auto) 7.8 10^3/uL Lymphocytes # (Auto) 0.4 10^3/uL Monocytes # (Auto) 0.6 10^3/uL Absolute Immature Granulocyte (auto 0.03 10^3 u/L Eosinophils % 0.3 % Basophils % 0.1 % Basophils # 0.0 10^3/uL Eosinophil Count 0.0 10^3/uL Sodium Level 135 mmol/L Potassium Level 3.0 mmol/L Chloride Level 99.0 mmol/L Carbon Dioxide Level 22.6 mmol/L Anion Gap 16.4 Blood Urea Nitrogen 10 mg/dL Creatinine 0.82 mg/dL Estimated GFR () 84.4 BUN/Creatinine Ratio 12.0 Glucose Level 115 mg/dL Hemoglobin A1c 5.1 % Calcium Level 8.1 mg/dL Total Bilirubin 2.3 mg/dL Aspartate Amino Transf (AST/SGOT) 38 U/L Alanine Aminotransferase (ALT/SGPT) 35 U/L Alkaline Phosphatase 84 U/L Total Creatine Kinase 297 U/L 312 U/L Total Protein 7.3 g/dL Albumin 2.7 g/dL Globulin 4.6 Vitamin B12 Level 372 pg/mL Thyroid Stimulating Hormone (TSH) 0.994 mIU/mL Free Thyroxine 1.13 ng/dL Thyroxine (T4) 5.7 ug/dL Free Triiodothyronine (T3) Index 1.10 Percent Immature Gran (Cell Imm) 0.30 % Differential Total Cells Counted 100 #CELLS Segmented Neutrophils 81 % Band Neutrophils 9 % Lymphocytes 6 % Monocytes 4 % Platelet Estimate ADEQUATE Platelet Morphology NORMAL Blood Morphology Comment NORMAL MORPHOLOGY Test 10/06/18 13:50 10/06/18 16:29 10/07/18 04:53 CSF Volume 7.0 ML CSF Appearance TURBID CSF Color BLOODY CSF WBC 324 /mm3 CSF RBC 72408 /mm3 CSF Neutrophils 73 % CSF Lymphocytes 20 % CSF Other Cells CSF Comment CSF Glucose 3 mg/dL CSF Total Protein 570 mg/dL White Blood Count 9.2 10^3/uL Red Blood Count 3.82 10^6/uL Hemoglobin 11.6 g/dL Hematocrit 33.1 % Mean Corpuscular Volume 86.6 fL Mean Corpuscular Hemoglobin 30.4 pg Mean Corpuscular Hemoglobin Concent 35.0 g/dL Red Cell Distribution Width 12.8 % Platelet Count 112 10^3/uL Mean Platelet Volume 10.4 fL Sodium Level 136 mmol/L Potassium Level 3.1 mmol/L Chloride Level 102.0 mmol/L Carbon Dioxide Level 24.8 mmol/L Anion Gap 12.3 Blood Urea Nitrogen 13 mg/dL Creatinine 0.77 mg/dL Estimated GFR () 90.5 BUN/Creatinine Ratio 16.0 Glucose Level 122 mg/dL Calcium Level 8.0 mg/dL Magnesium Level 2.1 mg/dL Total Bilirubin 1.4 mg/dL Aspartate Amino Transf (AST/SGOT) 34 U/L Alanine Aminotransferase (ALT/SGPT) 32 U/L Alkaline Phosphatase 73 U/L Total Protein 6.7 g/dL Albumin 2.3 g/dL Globulin 4.4 Current Medications Medications (Trade) Dose Ordered Sig/Lona PRN Reason Start Time Stop Time Status Last Admin Acetaminophen (Tylenol) 1,000 mg Q6HR PRN PAIN or Fever 10/05/18 23:00 11/04/18 22:59 10/07/18 16:52 Azithromycin 500 mg/Sodium Chloride 250 ml @ 175 mls/hr Q24HRS 10/06/18 12:30 11/05/18 12:29 10/07/18 12:33 Enoxaparin Sodium (Lovenox) 40 mg Q24HRS 10/06/18 16:00 11/05/18 15:59 10/07/18 16:19 Ketorolac Tromethamine (Toradol) 30 mg Q6HR PRN PAIN or Fever 10/05/18 23:00 10/10/18 22:59 10/07/18 12:33 Levothyroxine Sodium (Synthroid) 150 mcg ACB 10/08/18 06:30 11/07/18 06:29 Pantoprazole Sodium (Protonix Iv) 40 mg DAILY 10/07/18 09:00 11/06/18 08:59 10/06/18 12:28 Potassium Chloride/Dextrose/ Sod Cl 1,000 ml @ 75 mls/hr [id number] 10/05/18 23:00 11/04/18 22:59 10/07/18 03:27 Potassium Chloride (Klor-Con 10) 40 meq STAT 10/07/18 07:30 11/06/18 07:29 10/07/18 07:34 Sepsis Infection Criteria Pres: Documented Infection LEVEL 1 SEPSIS INFECTION CRITE: ABX Therapy LEVEL 2-SIRS (LIST ALL THAT AP: None/Not assessed Cardiovascular Evidence: Not Assessed or None Hematologic Evidence: None/Not assessed Hepatic Evidence: None/Not assessed Metabolic Evidence: None/Not assessed Neurological Evidence: None/Not assessed Respiratory Evidence: None/Not assessed Renal Evidence: None/Not assessed O2 Sat by Pulse Oximetry: 97 Plan Discharge Date: Oct 11, 2018 Dicharge DX: Bacteremia, Bacterial Meningitis, Sepsis, UTI Discharge Disposition: Stable Plan ok to d/c to home with Home Health for long-term abx administration medications: per med rec list. IV abx dosing with stop date included on handwritten prescription. Vancomycin 1 Gram IV BID with stop date. Dosing of abx to be adjusted based on Vanc trough levels by Home Health team. F/U with PCP within 1 week Diet: regular Activity: as tolerated Return to care for fever, nausea, AMS, or any other concerning symptoms JAMIN PAEZ MD Oct 11, 2018 17:23
[2018-10-11 17:45] VITALS: BP 156/76
--- NOTE | 2018-10-11 17:53 | NUR ---
D/C D/C INSTRUCTIONS GIVEN TO PT. OBTAINED VERBAL AND WRITTEN UNDERSTANDING. NO S/S OF DISTRESS NOTED. PT OFF OF UNIT VIA W/C TO GO TO PRIVATE VEHICLE TO HOME IN. RELINQUISHED CARE OF PT
== END 2018-10-11 17:50 | disposition home health service (06) | DRG 871 ==
LOC: ER 16:47 → EDBD 16:47 → MS 20:21 → OBSVTOIN 20:21 → MS 22:10 → EDPENDDISDT 10-11 17:30 → EDPENDDISTM 10-11 17:30
PROVIDERS: ADMIT Internal Medicine; ATTEND Internal Medicine
PROC: 05HY33Z Insertion of Infusion Device into Upper Vein, Percutaneous Approach (ICD-10-PCS; principal; 2018-10-11)
DX: A41.9 Sepsis, unspecified organism (principal); E43 Unspecified severe protein-calorie malnutrition; G00.9 Bacterial meningitis, unspecified; G93.49 Other encephalopathy; N39.0 Urinary tract infection, site not specified; M62.82 Rhabdomyolysis; Z68.42 Body mass index [BMI] 45.0-49.9, adult; R65.20 Severe sepsis without septic shock; J02.0 Streptococcal pharyngitis; E87.6 Hypokalemia; R09.02 Hypoxemia; E03.9 Hypothyroidism, unspecified; E86.0 Dehydration; H93.19 Tinnitus, unspecified ear; I10 Essential (primary) hypertension; F41.1 Generalized anxiety disorder; K21.9 Gastro-esophageal reflux disease without esophagitis; E83.42 Hypomagnesemia; M19.90 Unspecified osteoarthritis, unspecified site; B96.20 Unspecified Escherichia coli [E. coli] as the cause of diseases classified elsewhere; B95.3 Streptococcus pneumoniae as the cause of diseases classified elsewhere
CPT/HCPCS: 36415; 36569; 36600; 70450; 71045; 80053; 80202; 81000; 82550; 82607; 82803; 82945; 83036; 83615; 83735; 83880; 84157; 84436; 84439; 84443; 84484; 85025; 85027; 85610; 85730; 86710; 86789; 87040; 87070; 87077; 87086; 87186; 87205; 87252; 87529; 87880; 89051; 93005; 99285; A4338; C9113; G0378; J0456; J0696; J0744; J1642; J1650; J1885; J2001; J2060; J2250; J2405; J2543; J3480; J7030; J7050; J7070; J3370

== ENCOUNTER → 2018-10-16 | Outpatient (CLI) | payer MEDICARE ==
[~2018-10-16] MED LIST: LEVO150T6 PO
[2018-10-16 10:15] LABS: BASOPHIL # 0.1 10^3/uL (0.0-0.1); BASOPHIL % 0.9 % (0.0-0.2); EOSINOPHIL # 0.3 10^3/uL (0.0-0.2); EOSINOPHIL % 4.4 % (0.0-5.0); HEMOGLOBIN 10.9 g/dL (12.0-15.0); LYMPHOCYTES # 1.9 10^3/uL (1.0-4.8); LYMPHOCYTES % 31.7 % (24.0-44.0); MEAN CELL HGB 30.9 pg (26-34); MEAN CELL HGB CONCENTRATION 34.5 g/dL (33-37); MEAN CORP VOLUME 89.5 fL (78-100); MEAN PLATELET VOLUME 9.8 fL (7.8-11.0); MONOCYTES # 0.4 10^3/uL (0.3-0.8); NEUTROPHIL # 3.3 10^3/uL (1.8-7.7); NEUTROPHILS % 56.3 % (41.0-85.0); PLATELET COUNT 327 10^3/uL (150-400); RED CELL DISTRIBUTION WIDTH 13.8 % (11.5-14.5); WHITE BLOOD CELL 5.9 10^3/uL (4.5-11.0)
[2018-10-16 10:36] LABS: CALCIUM 8.4 mg/dL (8.4-10.5); CARBON DIOXIDE 26.6 mmol/L (20.0-32)
[2018-10-16 11:17] LABS: ERYTHROCYTE SEDIMENTATION RATE 100 mm/hr (0-20)
== END | disposition home or self-care (01) ==
LOC: NPLAB 09:56
PROVIDERS: ATTEND Internal Medicine
DX: A40.3 Sepsis due to Streptococcus pneumoniae (principal); G00.2 Streptococcal meningitis; G93.49 Other encephalopathy
CPT/HCPCS: 36415; 80053; 80202; 85025; 85651; 86140

== ENCOUNTER → 2019-05-29 | Outpatient (CLI) | payer MEDICARE | END | disposition home or self-care (01) | LOC: NPLAB 12:35 | PROVIDERS: ATTEND Nurse Practitioner | DX: R32 Unspecified urinary incontinence (principal); I10 Essential (primary) hypertension; E03.9 Hypothyroidism, unspecified; K52.1 Toxic gastroenteritis and colitis | CPT/HCPCS: 87077; 87086; 87186 ==